=== PATIENT | female | born 1980 | race Caucasian/White ===

== ENCOUNTER 2016-12-26 07:38 | Emergency (ER) | payer BC, OTHER ==
[~2016-12-26] VITALS: Ht 160 cm; Wt 68.2 kg
[~2016-12-26 07:38] MED LIST: CALC500C3
[2016-12-26 07:44] VITALS: TEMP 36.4; Ht 160 cm; Wt 68.2 kg
[2016-12-26] MEDS ORDERED: SODIUM CHLORIDE 0.9% 1000ML 1,000 ML IV STA ×2 (08:03→10:18)
[2016-12-26] MEDS ORDERED: ONDANSETRON INJ 2 MG/ML 2 ML VIAL IV STA (08:03)
[2016-12-26] MEDS ORDERED: MoRPHine SULFATE 4 MG/ML 1 ML CARP\\VIAL IV STA (08:03)
--- NOTE | 2016-12-26 08:09 | EMERGENCY ROOM VISIT NOTE ---
History First contact with patient: 07:54 Chief Complaint: ABDOMINAL PAIN Stated Complaint: STOMACH PAIN Nursing Triage Summary: History of IBS with chronic constipation Reports symptoms began this morning at 0530 Sharp bilateral upper abdominal pain Nausea without vomiting Last bowel movement yesterday History of Present Illness The patient is a 36 year old female who presents to the Emergency Room with complaints of abdominal pain. The patient states that this morning she developed abdominal pain and cramping around 5:30 AM. She became nauseated but did not vomit. She states the pain progressively worsened and describes the pain as sharp, cramping and in the upper abdomen, particularly on the right. She rates her discomfort a 4/10. She denies any fevers. She denies any vomiting or diarrhea. She denies any pain in her chest, trouble breathing or pleuritic pain. She denies any urinary symptoms. She does have a history of breast cancer treated with mastectomy. She has a history of irritable bowel syndrome with constipation. Review of Systems A 10 system review of systems was completed with positives and pertinent negatives listed in the HPI. Past Medical/Surgical History Medical Problems: (1) Breast cancer (2) No Known Active Medical Problems Surgical Problems: (1) H/O section Social History Smoking Status: Never Smoker Housing Status: lives with family Current/Historical Medications Scheduled Control Pills ( Control Pills), 1 TAB PO HS Scheduled PRN Calcium Carbonate (Tums), for Acid Relux Allergies Coded Allergies: No Known Allergies (Verified , 12/26/16) Physical Exam Vital Signs Date Time Temp Pulse Resp B/P Pulse Ox O2 Delivery O2 Flow Rate FiO2 12/26/16 11:53 71 16 94/59 97 12/26/16 10:05 74 16 110/63 96 Room Air 12/26/16 07:44 36.4 89 20 112/73 100 Room Air Physical Exam VITALS: Vitals are noted on the nurse's note and reviewed by myself. Vital signs stable. The patient is afebrile. GENERAL: This is a 36-year-old female, in no acute distress, nondiaphoretic, well-developed well-nourished. SKIN: The skin was without rashes, erythema, edema, or bruising. There is no tenting of the skin. Capillary reflex less than 2 seconds. HEAD: Normocephalic atraumatic. EARS: The external ears are normal in appearance. EYES: Pupils equal round and reactive to light and accommodation. Conjunctivae without injection, sclerae without icterus. Extraocular movements intact. NOSE: Patent, turbinates without inflammation or discharge. MOUTH: Mucous membranes moist. Tonsils are not enlarged. Pharynx without erythema or exudate. Uvula midline. Airway patent. Tongue does not deviate. NECK: Supple without nuchal rigidity. No JVD. HEART: Regular rate and rhythm without murmurs gallops or rubs. LUNGS: Clear to auscultation bilaterally without wheezes, rales or rhonchi. No retractions or accessory muscle use. ABDOMEN: Positive bowel sounds x 4. Soft, marked upper abdominal tenderness, without masses or organomegaly. Velasco sign positive. There is no CVA tenderness. MUSCULOSKELETAL: No muscle atrophy, erythema, or edema noted. Full range of motion in all extremities. Normal gait. Strength 5/5 throughout. NEURO: Patient was alert and oriented to person place and time. No focal neurological deficits. Medical Decision & Procedures ER Provider Diagnostic Interpretation: BILIARY ULTRASOUND CLINICAL HISTORY: Right upper quadrant abdominal pain COMPARISON STUDY: No previous studies for comparison. FINDINGS: The pancreas was nonvisualized. The gallbladder. Sonographically normal. There is no ductal dilatation. The common buttock measures 3 mm. No focal hepatic masses are visualized. There is no right-sided hydronephrosis. IMPRESSION: Nondiagnostic evaluation the pancreas. Otherwise normal biliary ultrasound. ABDOMEN 2VIEW W/PA CHEST RTN CLINICAL HISTORY: abdominal pain COMPARISON STUDY: No previous studies for comparison. FINDINGS: The soft tissues, psoas shadows, renal outlines and intestinal gas pattern appear normal. There is no evidence for bowel obstruction. There is no evidence for free intraperitoneal air. No abnormal abdominal calcifications are seen. A frontal view of the chest was performed and is unremarkable. IMPRESSION: Normal study. [~ rep ct add3]] CT ABD/PELVIS IV CONTRAST ONLY CLINICAL HISTORY: Right lower quadrant abdominal pain COMPARISON STUDY: None. TECHNIQUE: Following the IV administration of 119 mL of Optiray-320, CT scan of the abdomen and pelvis was performed from the lung bases to the proximal femurs. Images are reviewed in the axial, sagittal, and coronal planes. IV contrast was administered without complication. CT DOSE: 501.21 mGycm FINDINGS: Lower chest: There are bilateral breast implants. There are minimal dependent atelectatic changes. Liver: There is borderline hepatic steatosis. No focal masses are visualized. Gallbladder: Unremarkable. Spleen: Normal in size and attenuation. Pancreas: Unremarkable. Adrenal glands: Unremarkable. Kidneys: There is symmetric renal cortical enhancement. The kidneys are normal in size without hydronephrosis. Bowel: The appendix appears normal as visualized. There is no evidence of acute diverticulitis. There are multiple fluid-filled small bowel and colonic loops. There are no transition zones indicate bowel obstruction. There is borderline small bowel wall thickening. Clinical correlation regards to an enteritis is recommended. Peritoneum: There is no intraperitoneal free air or abdominal ascites. Vasculature: The abdominal aorta is normal in course and caliber. Adenopathy: None. Pelvic viscera: The bladder, and pelvic viscera are unremarkable. Skeletal structures: No destructive osseous lesions are seen. IMPRESSION: 1. No evidence of bowel obstruction. No evidence of free air 2. No evidence of acute appendicitis 3. Multiple fluid-filled bowel loops with borderline small bowel wall thickening. Clinical correlation in regards to an enteritis is recommended Laboratory Results 12/26/16 08:00 Red Blood Count 5.05, Mean Corpuscular Volume 88.3, Mean Corpuscular Hemoglobin 30.7, Mean Corpuscular Hemoglobin Concent 34.8, Mean Platelet Volume 10.5, Neutrophils (%) (Auto) 82.7, Lymphocytes (%) (Auto) 7.2, Monocytes (%) (Auto) 8.8, Eosinophils (%) (Auto) 0.9, Basophils (%) (Auto) 0.1, Neutrophils # (Auto) 13.87, Lymphocytes # (Auto) 1.21, Monocytes # (Auto) 1.48, Eosinophils # (Auto) 0.15, Basophils # (Auto) 0.02 12/26/16 08:00 Test 12/26/16 08:00 12/26/16 08:24 12/26/16 08:55 White Blood Count 16.78 K/uL (4.8-10.8) Red Blood Count 5.05 M/uL (4.2-5.4) Hemoglobin 15.5 g/dL (12.0-16.0) Hematocrit 44.6 % (37-47) Mean Corpuscular Volume 88.3 fL (80-100) Mean Corpuscular Hemoglobin 30.7 pg (25-34) Mean Corpuscular Hemoglobin Concent 34.8 g/dl (32-36) Platelet Count 321 K/uL (130-400) Mean Platelet Volume 10.5 fL (7.4-10.4) Neutrophils (%) (Auto) 82.7 % Lymphocytes (%) (Auto) 7.2 % Monocytes (%) (Auto) 8.8 % Eosinophils (%) (Auto) 0.9 % Basophils (%) (Auto) 0.1 % Neutrophils # (Auto) 13.87 K/uL (1.4-6.5) Lymphocytes # (Auto) 1.21 K/uL (1.2-3.4) Monocytes # (Auto) 1.48 K/uL (0.11-0.59) Eosinophils # (Auto) 0.15 K/uL (0-0.5) Basophils # (Auto) 0.02 K/uL (0-0.2) RDW Standard Deviation 40.4 fL (36.4-46.3) RDW Coefficient of Variation 12.6 % (11.5-14.5) Immature Granulocyte % (Auto) 0.3 % Immature Granulocyte # (Auto) 0.05 K/uL (0.00-0.02) Prothrombin Time 11.1 SECONDS (9.0-12.0) Prothromb Time International Ratio 1.0 (0.9-1.1) Activated Partial Thromboplast Time 27.9 SECONDS (21.0-31.0) Partial Thromboplastin Ratio 1.1 Anion Gap 12.0 mmol/L (3-11) Est Creatinine Clear Calc Drug Dose 79.4 ml/min Estimated GFR () 95.3 Estimated GFR (Non- 82.2 BUN/Creatinine Ratio 16.3 (10-20) Calcium Level 8.8 mg/dl (8.5-10.1) Magnesium Level 2.0 mg/dl (1.8-2.4) Total Bilirubin 0.3 mg/dl (0.2-1) Aspartate Amino Transf (AST/SGOT) 11 U/L (15-37) Alanine Aminotransferase (ALT/SGPT) 18 U/L (12-78) Alkaline Phosphatase 64 U/L (45-117) Total Protein 8.3 gm/dl (6.4-8.2) Albumin 3.9 gm/dl (3.4-5.0) Globulin 4.4 gm/dl (2.5-4.0) Albumin/Globulin Ratio 0.9 (0.9-2) Amylase Level 95 U/L (25-115) Lipase 179 U/L (73-393) Lactic Acid Level 2.3 mmol/L (0.4-2.0) Urine Color YELLOW Urine Appearance CLEAR (CLEAR) Urine pH 5.5 (4.5-7.5) Urine Specific [place] 1.006 (1.000-1.030) Urine Protein NEG (NEG) Urine Glucose (UA) NEG (NEG) Urine Ketones NEG (NEG) Urine Occult Blood TRACE (NEG) Urine Nitrite NEG (NEG) Urine Bilirubin NEG (NEG) Urine Urobilinogen NEG (NEG) Urine Leukocyte Esterase NEG (NEG) Urine WBC (Auto) 0 /hpf (0-5) Urine RBC (Auto) 0-4 /hpf (0-4) Urine Hyaline Casts (Auto) 0 /lpf (0-5) Urine Epithelial Cells (Auto) 20-30 /lpf (0-5) Urine Bacteria (Auto) NEG (NEG) Urine Test NEG (NEG) Medications Administered Medications (Trade) Dose Ordered Sig/Babatunde Route Start Time Stop Time Status Last Admin Dose Admin Sodium Chloride (Nss 1000ml) 1,000 ml @ 999 mls/hr Q1H1M STAT IV 12/26/16 08:03 12/26/16 09:03 DC 12/26/16 08:16 999 MLS/HR Morphine Sulfate (MoRPHine SULFATE INJ) 4 mg NOW STAT IV 12/26/16 08:03 12/26/16 08:08 DC 12/26/16 08:16 4 MG Ondansetron HCl 4 mg 4 mg NOW STAT IV 12/26/16 08:03 12/26/16 08:08 DC 12/26/16 08:17 4 MG Sodium Chloride (Nss 1000ml) 1,000 ml @ 999 mls/hr Q1H1M STAT IV 12/26/16 10:18 12/26/16 11:18 DC 12/26/16 10:18 999 MLS/HR ED Course The patient was seen and examined. Previous visits were reviewed. The patient does not have a fever. She does have a leukocytosis of 16.78. She does not have any significant electrolyte abnormality. Lactic acid shows a very minimal elevation at 2.3. Amylase and lipase were not elevated. INR was 1.0. Urinalysis suggests contamination. The patient was hydrated with normal saline 2 L She was given 4 mg IV morphine and 4 mg IV Zofran with improvement in her symptoms The patient presents to the emergency department with nausea and diffuse abdominal cramping. Initially, the pain was in the upper abdomen and particularly the right upper quadrant. Gallbladder ultrasound was negative. Plain films of the abdomen did not reveal any acute obstruction. At this time, I reevaluated the patient. She did have tenderness to palpation in the right lower quadrant that was not present on initial examination. Therefore, I did order a CT scan of the abdomen and pelvis with IV and oral contrast. The patient was not able to tolerate oral contrast and instead a contrast only CT was ordered. This reveals enteritis. The patient has had nausea and diffuse crampy abdominal pain. The patient states that she has gone to the bathroom more than usual but denies any true diarrhea. She does report a history of constipation. The patient states that she was around friends of hers a few days ago that has nausea, vomiting and diarrhea. This likely represents an enteritis, likely viral in etiology. I do not suspect an acute abdomen. The patient will be given a prescription for Zofran. She was advised to return to the emergency Department with any worsening symptoms. Otherwise, she should follow-up with her family doctor next week. The case was discussed with Dr. Hughes who agrees with the assessment and treatment plan. Medical Decision DIFFERENTIAL DIAGNOSIS: Hepatitis, cholecystitis, cholangitis, biliary colic, pancreatitis, pneumonia, subdiaphragmatic abscess, appendicitis, inguinal hernia , nephrolithiasis, inflammatory bowel disease, mesenteric adenitis, peptic ulcer disease, GERD, gastritis, pancreatitis, myocardial infarction, pericarditis, ruptured aortic aneurysm, appendicitis, gastroenteritis, bowel obstruction, splenic infarct, diverticulitis, mesenteric ischemia, metabolic, peritonitis, among others. Impression Primary Impression: Enteritis Additional Impression: Nausea Departure Information Dispostion Home / Self-Care Condition GOOD Referrals Waqas Ramirez M.D. (PCP) Patient Instructions ED Food Poison Or Gastroenteritis, My [facility] Additional Instructions Zofran as prescribed, as needed for nausea and vomiting [place] diet and increase the diet as tolerated Return to the ER with any worsening pain or fevers Otherwise, recheck with your family doctor next week Problem Qualifiers
[2016-12-26 08:23] LABS: BASO % 0.1 %; BASO ABS # 0.02 K/uL (0-0.2); COMPLETE YES; EOS % 0.9 %; HEMATOCRIT 44.6 % (37-47); IG% 0.3 %; LYMPH % 7.2 %; LYMPH ABS # 1.21 K/uL (1.2-3.4); MEAN CELL VOLUME 88.3 fL (80-100); MEAN CORPUSCULAR HEMOGLOBIN 30.7 pg (25-34); MEAN CORPUSCULAR HGB CONC 34.8 g/dl (32-36); MEAN PLATELET VOLUME 10.5 fL (7.4-10.4); MONO % 8.8 %; NEUT % 82.7 %; PLATELET COUNT 321 K/uL (130-400); RED BLOOD COUNT 5.05 M/uL (4.2-5.4); WHITE BLOOD COUNT 16.78 K/uL (4.8-10.8)
[2016-12-26 08:32] LABS: PARTIAL THROMBOPLASTIN RATIO 1.1; PROTHROMBIN TIME (PATIENT) 11.1 SECONDS (9.0-12.0)
[2016-12-26 08:43] LABS: BUN/CREATININE RATIO 16.3 (10-20); CALCIUM 8.8 mg/dl (8.5-10.1); CREATININE 0.89 mg/dl (0.60-1.20); POTASSIUM 4.1 mmol/L (3.5-5.1)
[2016-12-26 08:45] LABS: ALB/GLOB RATIO 0.9 (0.9-2)
[2016-12-26 09:13] LABS: URINE APPEARANCE CLEAR (CLEAR); URINE BILIRUBIN NEG (NEG); URINE COLOR YELLOW; URINE EPITHELIAL CELL AUTO 20-30 /lpf (0-5); URINE NITRITE NEG (NEG); URINE PH 5.5 (4.5-7.5); URINE SPECIFIC GRAVITY 1.006 (1.000-1.030); UROBILINOGEN NEG (NEG); ZZURINE CULT IF INDIC CATH NO
[2016-12-26 09:16] LABS: MANUAL MICROSCOPIC REQUIRED? NO; PREG INTERNAL NEGATIVE QC NEG CLEAR BACKGROUND; PREG INTERNAL POSITIVE QC POS CONTROL LINE; REVIEW REQ? NO
--- NOTE | 2016-12-26 09:35 | DIAGNOSTIC IMAGING REPORT ---
ABDOMEN 2VIEW W/PA CHEST RTN CLINICAL HISTORY: abdominal pain COMPARISON STUDY: No previous studies for comparison. FINDINGS: The soft tissues, psoas shadows, renal outlines and intestinal gas pattern appear normal. There is no evidence for bowel obstruction. There is no evidence for free intraperitoneal air. No abnormal abdominal calcifications are seen. A frontal view of the chest was performed and is unremarkable. IMPRESSION: Normal study. Electronically signed by: Anthony Patrick M.D. 12/26/2016 9:34 AM Dictated Date/Time: 12/26/2016 9:33 AM
--- NOTE | 2016-12-26 10:05 | DIAGNOSTIC IMAGING REPORT ---
BILIARY ULTRASOUND CLINICAL HISTORY: Right upper quadrant abdominal pain COMPARISON STUDY: No previous studies for comparison. FINDINGS: The pancreas was nonvisualized. The gallbladder. Sonographically normal. There is no ductal dilatation. The common buttock measures 3 mm. No focal hepatic masses are visualized. There is no right-sided hydronephrosis. IMPRESSION: Nondiagnostic evaluation the pancreas. Otherwise normal biliary ultrasound. Electronically signed by: Clarence Conley M.D. 12/26/2016 10:04 AM Dictated Date/Time: 12/26/2016 10:03 AM
[2016-12-26] MEDS ORDERED: OPTIRAY 320 IV PRN (10:30)
--- NOTE | 2016-12-26 11:19 | DIAGNOSTIC IMAGING REPORT ---
CT ABD/PELVIS IV CONTRAST ONLY CLINICAL HISTORY: Right lower quadrant abdominal pain COMPARISON STUDY: None. TECHNIQUE: Following the IV administration of 119 mL of Optiray-320, CT scan of the abdomen and pelvis was performed from the lung bases to the proximal femurs. Images are reviewed in the axial, sagittal, and coronal planes. IV contrast was administered without complication. CT DOSE: 501.21 mGycm FINDINGS: Lower chest: There are bilateral breast implants. There are minimal dependent atelectatic changes. Liver: There is borderline hepatic steatosis. No focal masses are visualized. Gallbladder: Unremarkable. Spleen: Normal in size and attenuation. Pancreas: Unremarkable. Adrenal glands: Unremarkable. Kidneys: There is symmetric renal cortical enhancement. The kidneys are normal in size without hydronephrosis. Bowel: The appendix appears normal as visualized. There is no evidence of acute diverticulitis. There are multiple fluid-filled small bowel and colonic loops. There are no transition zones indicate bowel obstruction. There is borderline small bowel wall thickening. Clinical correlation regards to an enteritis is recommended. Peritoneum: There is no intraperitoneal free air or abdominal ascites. Vasculature: The abdominal aorta is normal in course and caliber. Adenopathy: None. Pelvic viscera: The bladder, and pelvic viscera are unremarkable. Skeletal structures: No destructive osseous lesions are seen. IMPRESSION: 1. No evidence of bowel obstruction. No evidence of free air 2. No evidence of acute appendicitis 3. Multiple fluid-filled bowel loops with borderline small bowel wall thickening. Clinical correlation in regards to an enteritis is recommended Electronically signed by: Clarence Conley M.D. 12/26/2016 11:18 AM Dictated Date/Time: 12/26/2016 11:14 AM
[2016-12-26] MEDS ORDERED: ONDA4TAB10 SL (11:34)
[2016-12-26 11:53] VITALS: BP 94/59; PULSE 71; O2SAT 97
[2017-01-20] MEDS ORDERED: BCPILLS PO (11:41)
[2017-01-23] MEDS ORDERED: RANI150T3 PO (11:36)
[2017-01-23] MEDS ORDERED: ALUMSUS2 PO (11:36)
[2017-01-23] MEDS ORDERED: ONDA4TAB46 PO (11:36)
== END 2016-12-26 11:55 | disposition home or self-care (01) ==
LOC: C.EDB 07:43
DX: K52.9 Noninfective gastroenteritis and colitis, unspecified (principal); R11.0 Nausea; Z85.3 Personal history of malignant neoplasm of breast; Z90.10 Acquired absence of unspecified breast and nipple

== ENCOUNTER 2017-01-05 09:27 | Observation (INO) | payer BC ==
[~2017-01-05] VITALS: Ht 160 cm; Wt 68.7 kg
[2017-01-05] MEDS ORDERED: SODIUM CHLORIDE 0.9% 1000ML 1,000 ML IV STA (10:31)
[2017-01-05] MEDS ORDERED: KETOROLAC TROMETHAMINE 30 MG/ML VIAL IV STA (10:31)
[2017-01-05] MEDS ORDERED: ONDANSETRON 8 MG/54 ML D5W IV STA (10:31)
[2017-01-05 10:36] LABS: BASO % 0.2 %; BASO ABS # 0.02 K/uL (0-0.2); COMPLETE YES; EOS % 0.6 %; HEMATOCRIT 44.1 % (37-47); IG% 0.1 %; LYMPH % 25.6 %; LYMPH ABS # 2.17 K/uL (1.2-3.4); MEAN CELL VOLUME 88.4 fL (80-100); MEAN CORPUSCULAR HEMOGLOBIN 31.1 pg (25-34); MEAN CORPUSCULAR HGB CONC 35.1 g/dl (32-36); MEAN PLATELET VOLUME 10.8 fL (7.4-10.4); MONO % 6.5 %; PLATELET COUNT 346 K/uL (130-400); RED BLOOD COUNT 4.99 M/uL (4.2-5.4); WHITE BLOOD COUNT 8.48 K/uL (4.8-10.8)
[2017-01-05 10:45] LABS: ALT/SGPT 37 U/L (12-78); AST/SGOT 13 U/L (15-37); BLOOD UREA NITROGEN 15 mg/dl (7-18); CALCIUM 9.3 mg/dl (8.5-10.1); CARBON DIOXIDE 23 mmol/L (21-32); CHLORIDE 104 mmol/L (98-107); CREATININE 0.85 mg/dl (0.60-1.20); GLUCOSE 74 mg/dl (70-99); POTASSIUM 3.8 mmol/L (3.5-5.1); SODIUM 139 mmol/L (136-145)
[2017-01-05 10:48] LABS: ALKALINE PHOSPHATASE 55 U/L (45-117)
[2017-01-05] MEDS: HYDROmorphone INJ 1 MG/ML SYR IV PRN ×4 (11:06→17:56)
[2017-01-05 11:14] LABS: MANUAL MICROSCOPIC REQUIRED? YES; URINE APPEARANCE SL CLOUDY (CLEAR); URINE BILIRUBIN NEG (NEG); URINE COLOR YELLOW; URINE NITRITE NEG (NEG); URINE SPECIFIC GRAVITY 1.015 (1.000-1.030); UROBILINOGEN NEG (NEG)
[2017-01-05] MEDS ORDERED: BENZ100C84 PO (11:19)
[2017-01-05 11:32] LABS: REVIEW REQ? NO
[2017-01-05 12:00] LABS: URINE BACTERIA 2+ (NEG); URINE RBC 0-4 /hpf (0-4)
[2017-01-05 12:02] LABS: ZZUR CULT IF INDIC CLEAN CATCH YES
--- NOTE | 2017-01-05 12:10 | DIAGNOSTIC IMAGING REPORT ---
Biliary ultrasound CLINICAL HISTORY: recurrent severe, epigastric abd pain COMPARISON STUDY: 12/26/2016 FINDINGS: The gallbladder appears sonographically normal. There is no ductal dilatation. The common bile duct measured 4 mm. There is no right-sided hydronephrosis. No hepatic masses are visualized. The pancreas was not visualized. IMPRESSION: Nonvisualization of the pancreas. Otherwise normal biliary ultrasound. Electronically signed by: Clarence Conley M.D. 01/05/2017 12:09 PM Dictated Date/Time: 01/05/2017 12:08 PM
[2017-01-05] MEDS ORDERED: PROMETHAZINE HCL INJ 25 MG in SODIUM CHLORIDE 0.9% 50ML 50 ML IV STA (14:29)
[2017-01-05] MEDS ORDERED: IV FLUIDS COMPLETED PRN (16:00)
--- NOTE | 2017-01-05 16:15 | Medical Student: [facility] ---
Med Student History & Physical Date & Time of Service: Jan 05, 2017 at 16:09 Chief Complaint: Upper Abdominal Pain Primary Care Physician: Waqas Ramirez M.D. History of Present Illness Source: patient 36y/o female with a history of IBS with chronic constipation presents with a 10 day history of upper abdominal pain that became worse this morning. The patient was seen in the ED ten days ago for this dull, achy upper abdominal pain that comes and goes. During that visit, an ultrasound was done and came back showing a normal gallbladder. A CT of the abdomen and pelvis showed signs of enteritis. The patient was also seen at a [facility] clinic 10 days ago for cough, congestion, and fever. The patient was given tessalon pearls at that time and was sent home. She continued to have fevers, cough, congestion, and abdominal pain over the next few days and returned to the clinic about five days ago. At that time, the provider seeing the patient noticed significant tenderness on the abdominal exam and ordered a HIDA scan, which is set to be performed tomorrow 01/06/17. The patient was at work this morning, talking to a coworker, when her upper abdominal pain became much worse. She states that the pain became more sharp and was rated a 10 out of 10. Additionally, she felt very nauseous, hot, and sweaty and felt like she was going to pass out. She did not have an episode of syncope and she did not vomit. The pain continued until she received pain medication in the emergency department. Currently, she states that her abdominal pain has improved, rated a 2 out of 10. She denies chest pain , shortness of breath, diarrhea, palpitations, and lower extremity swelling. Her cough and congestion have improved. The patient denies urinary symptoms, including pain with urination and going more often. In regards to her history of IBS, she states that her current episodes of pain feel different than the usual symptoms she gets with her IBS. The patient states she chronically has constipation from her IBS. Past Medical/Surgical History Medical Problems: (1) Enteritis 2. Breast Cancer 3. IBS with chronic constipation Surgical Problems: (1) H/O section 2. double mastectomy 3. port removal and replacement 4. breast reconstruction Family History CA, DM, HTN, kidney stones, seizures Mother: pertinent history of (gallbladder removal) Social History Smoking Status: Never Smoker Alcohol Use: none Drug Use: none Marital Status: Immunizations History of Influenza Vaccine: No History of Tetanus Vaccine?: Unknown History of Pneumococcal: No History of Hepatitis B Vaccine: No Allergies Coded Allergies: No Known Allergies (Verified , 01/05/17) Medications Control Pills ( Control Pills), 1 TAB PO HS Calcium Carbonate (Tums), for Acid Relux Review of Systems Constitutional: + sweats, No chills, No weakness Eyes: No discharge, No redness, No worsening of vision ENT: No hearing loss, No sore throat, No trouble swallowing Respiratory: No cough, No dyspnea at rest, No dyspnea on exertion, No shortness of breath, No sputum, No wheezing Cardiovascular: No chest pain, No edema, No orthopnea, No palpitations Abdomen: + constipation, + nausea, + pain, No GI bleeding, No diarrhea, No vomiting Musculoskeletal: No calf pain, No joint pain, No muscle pain, No swelling Genitourinary - Female: No dysuria, No urinary frequency, No urinary incontinence, No urinary urgency Neurologic: No memory loss, No paralysis, No weakness Integumentary: No itch, No new/changing skin lesions, No rash Physical Exam Vital Signs (24 Hours) Date Time Temp Pulse Resp B/P Pulse Ox O2 Delivery O2 Flow Rate FiO2 01/05/17 14:03 80 18 93/60 98 Room Air 01/05/17 12:33 74 18 113/70 100 Room Air 01/05/17 11:07 83 18 111/69 97 Room Air 01/05/17 09:29 87 20 118/74 100 Room Air General Appearance: WD/WN, no apparent distress Head: normocephalic, atraumatic Eyes: normal inspection, EOMI Respiratory/Chest: lungs clear, normal breath sounds, no respiratory distress, no accessory muscle use Cardiovascular: regular rate, rhythm, no edema, no gallop, no murmur Abdomen/GI: normal bowel sounds, soft, no organomegaly, + tenderness (RUQ and LUQ) Back: normal inspection, + right CVA tenderness Extremities/Musculoskelatal: normal inspection, no calf tenderness, no pedal edema Neurologic/Psych: alert, normal mood/affect, oriented x 3 Skin: normal color, warm/dry, no rash Diagnostics Laboratory Results Results Past 24 Hours Test 01/05/17 09:40 01/05/17 10:51 Range/Units White Blood Count 8.48 4.8-10.8 K/uL Red Blood Count 4.99 4.2-5.4 M/uL Hemoglobin 15.5 12.0-16.0 g/dL Hematocrit 44.1 37-47 % Mean Corpuscular Volume 88.4 80-100 fL Mean Corpuscular Hemoglobin 31.1 25-34 pg Mean Corpuscular Hemoglobin Concent 35.1 32-36 g/dl Platelet Count 346 130-400 K/uL Mean Platelet Volume 10.8 7.4-10.4 fL Neutrophils (%) (Auto) 67.0 % Lymphocytes (%) (Auto) 25.6 % Monocytes (%) (Auto) 6.5 % Eosinophils (%) (Auto) 0.6 % Basophils (%) (Auto) 0.2 % Neutrophils # (Auto) 5.68 1.4-6.5 K/uL Lymphocytes # (Auto) 2.17 1.2-3.4 K/uL Monocytes # (Auto) 0.55 0.11-0.59 K/uL Eosinophils # (Auto) 0.05 0-0.5 K/uL Basophils # (Auto) 0.02 0-0.2 K/uL RDW Standard Deviation 40.1 36.4-46.3 fL RDW Coefficient of Variation 12.6 11.5-14.5 % Immature Granulocyte % (Auto) 0.1 % Immature Granulocyte # (Auto) 0.01 0.00-0.02 K/uL Sodium Level 139 136-145 mmol/L Potassium Level 3.8 3.5-5.1 mmol/L Chloride Level 104 98-107 mmol/L Carbon Dioxide Level 23 21-32 mmol/L Anion Gap 12.0 3-11 mmol/L Blood Urea Nitrogen 15 7-18 mg/dl Creatinine 0.85 0.60-1.20 mg/dl Est Creatinine Clear Calc Drug Dose 83.5 ml/min Estimated GFR () 100.7 Estimated GFR (Non- 86.9 BUN/Creatinine Ratio 18.0 10-20 Random Glucose 74 70-99 mg/dl Calcium Level 9.3 8.5-10.1 mg/dl Total Bilirubin 0.3 0.2-1 mg/dl Direct Bilirubin < 0.1 0-0.2 mg/dl Aspartate Amino Transf (AST/SGOT) 13 15-37 U/L Alanine Aminotransferase (ALT/SGPT) 37 12-78 U/L Alkaline Phosphatase 55 45-117 U/L Total Protein 8.7 6.4-8.2 gm/dl Albumin 4.2 3.4-5.0 gm/dl Lipase 199 73-393 U/L Urine Color YELLOW Urine Appearance SL CLOUDY CLEAR Urine pH 6.0 4.5-7.5 Urine Specific [place] 1.015 1.000-1.030 Urine Protein NEG NEG Urine Glucose (UA) NEG NEG Urine Ketones NEG NEG Urine Occult Blood TRACE NEG Urine Nitrite NEG NEG Urine Bilirubin NEG NEG Urine Urobilinogen NEG NEG Urine Leukocyte Esterase SMALL NEG Urine RBC 0-4 0-4 /hpf Urine WBC 5-10 0-5 /hpf Urine Epithelial Cells >30 0-5 /lpf Urine Renal Cells FEW /lpf Urine Bacteria 2+ NEG Urine Hyaline Casts 5-10 0-5 /lpf Urine Mucus NONE PRSENT Urine Test NEG NEG Microbiology Results 01/05/17 Urine Culture, Received Pending Diagnostic Radiology GALLBLADDER US IMPRESSION: Nonvisualization of the pancreas. Otherwise normal biliary ultrasound. Impression Assessment and Plan 36y/o female with a history of IBS with chronic constipation presenting with a 10 day history of upper abdominal pain, worsening today am. Gallbladder US performed today was negative and HIDA scan scheduled for tomorrow. UA shows trace blood, 2+ bacteria, 5-10 hyaline casts, and small leukocyte esterase. These findings, combined with right flank tenderness on exam raises suspicion for potential pyelonephritis/UTI. However, there were greater than 30 epithelial cells in the sample as well, suggesting that the sample may have been contaminated. Consider obtaining a second urine sample, as well as CRP and procalcitonin, to better determine the state of infection. Urine culture is pending. Will administer IV fluids for dehydration. Upper abdominal pain/gallbladder dysfunction- Administer Dilaudid 1mg IV [id number] as needed for pain and Ondansetron HCl 4mg PO [id number] as needed for nausea. Proceed with scheduled HIDA scan tomorrow. Pyelonephritis/UTI- Collect another urine and repeat urinalysis to better determine if the patient has an infection. CRP and procalcitonin have been ordered. Urine culture pending. Hold administering antibiotics at this point. Dehydration- Hyaline casts were found on urinalysis. Administer 1/2 NS and 20meq KCl 1000ml at 150mls/hour. Control- Continue with home dosage of OCPs. Level of Care Med/Surg Resuscitation Status FULL RESUSCITATION
--- NOTE | 2017-01-05 17:01 | EMERGENCY ROOM VISIT NOTE ---
History Report prepared by [place]bert: Angela Bentley Under the Supervision of: Dr. Naif Elias M.D. First contact with patient: 10:17 Chief Complaint: ABDOMINAL PAIN Stated Complaint: STOMACH PAIN Nursing Triage Summary: Mid upper abdominal pain that began last Thursday "but it just got intense again" . Scheduled for HIDA scan tomorrow. History of Present Illness The patient is a 36 year old female who presents to the Emergency Room with complaints of waxing and waning sore pain in the upper central stomach which started 10 days ago. The patient went to the [facility] walk-in clinic for a head cold, cough and congestion and they noticed that she was tender in her upper abdomen. They were concerned for a gallbladder problems, so she was scheduled for a HIDA scan tomorrow, but was prompted to visit the ED after her pain worsened earlier today. She reports that she has previously had an ultrasound of her gallbladder when she was in the ED with similar symptoms December 26 which was found to be normal. This morning when her pain worsened , she also experienced diaphoresis, and feeling flushed and hot as if she was going to pass out. She did not lose consciousness. Currently, she is nauseated. She reports that she had a bowl of fruit this morning and her "bowels don't work well" normally. She has a history of a . She mentions that her mother has had a cholecystectomy. Pt denies LOC, headache, chills, visual changes, neck pain, chest pain, breathing difficulties, vomiting, back pain, melena, hematochezia, urinary symptoms, numbness, weakness, lymphadenopathy, rash, or other complaints. Source of History: patient Onset: 10 days ago Position: abdomen (upper) Quality: other (sore) Timing: waxes/wanes Associated Symptoms: + diaphoresis, + nausea Note: Associated symptoms: felt flushed and hot Review of Systems See HPI for pertinent positives and negatives. A total of ten systems were reviewed and were otherwise negative. Past Medical & Surgical Medical Problems: (1) Abdominal pain (2) Breast cancer (3) No Known Active Medical Problems Surgical Problems: (1) H/O section Family History Cancer Diabetes mellitus Hypertension Kidney stones Lung disease Seizures Social History Smoking Status: Never Smoker Marital Status: Housing Status: lives with family Occupation Status: employed Current/Historical Medications Scheduled Benzonatate (Tessalon Perles), 100 MG PO Q8 Control Pills ( Control Pills), 1 TAB PO HS Scheduled PRN Calcium Carbonate (Tums), for Acid Relux Allergies Coded Allergies: No Known Allergies (Verified , 01/05/17) Physical Exam Vital Signs Date Time Temp Pulse Resp B/P Pulse Ox O2 Delivery O2 Flow Rate FiO2 01/05/17 16:01 76 20 132/80 96 Room Air 01/05/17 14:03 80 18 93/60 98 Room Air 01/05/17 12:33 74 18 113/70 100 Room Air 01/05/17 11:07 83 18 111/69 97 Room Air 01/05/17 09:29 87 20 118/74 100 Room Air Physical Exam GENERAL: Awake, alert, uncomfortable appearing, in no distress HENT: Normocephalic, atraumatic. Oropharynx unremarkable. EYES: Normal conjunctiva. Sclera non-icteric. NECK: Supple. No nuchal rigidity. FROM. No JVD. RESPIRATORY: Clear to auscultation. CARDIAC: Regular rate, normal rhythm. Extremities warm and well perfused. Pulses equal. ABDOMEN: Soft, non-distended. Epigastric tenderness to palpation. No rebound. Mild guarding. No masses. RECTAL: Deferred. MUSCULOSKELETAL: Chest examination reveals no tenderness. The back is symmetrical on inspection without obvious abnormality. Right CVA tenderness to palpation. No joint edema. LOWER EXTREMITIES: Calves are equal size bilaterally and non-tender. No edema. No discoloration. NEURO: Normal sensorium. No sensory or motor deficits noted. SKIN: No rash or jaundice noted. Medical Decision & Procedures ER Provider Diagnostic Interpretation: Radiology results as stated below per my review and radiologist interpretation. Biliary ultrasound CLINICAL HISTORY: recurrent severe, epigastric abd pain COMPARISON STUDY: 12/26/2016 FINDINGS: The gallbladder appears sonographically normal. There is no ductal dilatation. The common bile duct measured 4 mm. There is no right-sided hydronephrosis. No hepatic masses are visualized. The pancreas was not visualized. IMPRESSION: Nonvisualization of the pancreas. Otherwise normal biliary ultrasound. Electronically signed by: Clarence Conley M.D. 01/05/2017 12:09 PM Laboratory Results 01/05/17 09:40 Red Blood Count 4.99, Mean Corpuscular Volume 88.4, Mean Corpuscular Hemoglobin 31.1, Mean Corpuscular Hemoglobin Concent 35.1, Mean Platelet Volume 10.8, Neutrophils (%) (Auto) 67.0, Lymphocytes (%) (Auto) 25.6, Monocytes (%) (Auto) 6.5, Eosinophils (%) (Auto) 0.6, Basophils (%) (Auto) 0.2, Neutrophils # (Auto) 5.68, Lymphocytes # (Auto) 2.17, Monocytes # (Auto) 0.55, Eosinophils # (Auto) 0.05, Basophils # (Auto) 0.02 01/05/17 09:40 Test 01/05/17 09:40 01/05/17 10:51 White Blood Count 8.48 K/uL (4.8-10.8) Red Blood Count 4.99 M/uL (4.2-5.4) Hemoglobin 15.5 g/dL (12.0-16.0) Hematocrit 44.1 % (37-47) Mean Corpuscular Volume 88.4 fL (80-100) Mean Corpuscular Hemoglobin 31.1 pg (25-34) Mean Corpuscular Hemoglobin Concent 35.1 g/dl (32-36) Platelet Count 346 K/uL (130-400) Mean Platelet Volume 10.8 fL (7.4-10.4) Neutrophils (%) (Auto) 67.0 % Lymphocytes (%) (Auto) 25.6 % Monocytes (%) (Auto) 6.5 % Eosinophils (%) (Auto) 0.6 % Basophils (%) (Auto) 0.2 % Neutrophils # (Auto) 5.68 K/uL (1.4-6.5) Lymphocytes # (Auto) 2.17 K/uL (1.2-3.4) Monocytes # (Auto) 0.55 K/uL (0.11-0.59) Eosinophils # (Auto) 0.05 K/uL (0-0.5) Basophils # (Auto) 0.02 K/uL (0-0.2) RDW Standard Deviation 40.1 fL (36.4-46.3) RDW Coefficient of Variation 12.6 % (11.5-14.5) Immature Granulocyte % (Auto) 0.1 % Immature Granulocyte # (Auto) 0.01 K/uL (0.00-0.02) Anion Gap 12.0 mmol/L (3-11) Est Creatinine Clear Calc Drug Dose 83.5 ml/min Estimated GFR () 100.7 Estimated GFR (Non- 86.9 BUN/Creatinine Ratio 18.0 (10-20) Calcium Level 9.3 mg/dl (8.5-10.1) Total Bilirubin 0.3 mg/dl (0.2-1) Direct Bilirubin < 0.1 mg/dl (0-0.2) Aspartate Amino Transf (AST/SGOT) 13 U/L (15-37) Alanine Aminotransferase (ALT/SGPT) 37 U/L (12-78) Alkaline Phosphatase 55 U/L (45-117) Total Protein 8.7 gm/dl (6.4-8.2) Albumin 4.2 gm/dl (3.4-5.0) Lipase 199 U/L (73-393) Urine Color YELLOW Urine Appearance SL CLOUDY (CLEAR) Urine pH 6.0 (4.5-7.5) Urine Specific [place] 1.015 (1.000-1.030) Urine Protein NEG (NEG) Urine Glucose (UA) NEG (NEG) Urine Ketones NEG (NEG) Urine Occult Blood TRACE (NEG) Urine Nitrite NEG (NEG) Urine Bilirubin NEG (NEG) Urine Urobilinogen NEG (NEG) Urine Leukocyte Esterase SMALL (NEG) Urine RBC 0-4 /hpf (0-4) Urine WBC 5-10 /hpf (0-5) Urine Epithelial Cells >30 /lpf (0-5) Urine Renal Cells /lpf (FEW) Urine Bacteria 2+ (NEG) Urine Hyaline Casts 5-10 /lpf (0-5) Urine Mucus (NONE PRSENT) Urine Test NEG (NEG) Laboratory results reviewed by me Medications Administered Medications (Trade) Dose Ordered Sig/Babatunde Route Start Time Stop Time Status Last Admin Dose Admin Hydromorphone HCl 1 mg 1 mg Q15M PRN IV 01/05/17 10:45 01/19/17 10:44 01/05/17 16:09 1 MG Sodium Chloride (Nss 1000ml) 1,000 ml @ 999 mls/hr Q1H1M STAT IV 01/05/17 10:31 01/05/17 11:31 DC 01/05/17 11:07 999 MLS/HR Ketorolac Tromethamine (Toradol Inj) 10 mg NOW STAT IV 01/05/17 10:31 01/05/17 10:32 DC 01/05/17 11:06 10 MG Ondansetron HCl 8 mg 8 mg NOW STAT IV 01/05/17 10:31 01/05/17 10:32 DC 01/05/17 11:06 8 MG Promethazine HCl/ Sodium Chloride (Phenergan Inj/ Nss 50ml) 51 ml @ 204 mls/hr NOW STAT IV 01/05/17 14:29 01/05/17 14:43 DC 01/05/17 14:43 204 MLS/HR ED Course 1029: The patient was evaluated in room A9. A complete history and physical exam was performed.\\ 1031: Zofran 8 mg IV, Toradol Inj 10 mg IV, NSS 1000 ml @ 999 mls/hr IV. 1045: Dilaudid Inj 1 mg IV. 1429: Ordered Promethazine HCl 25 mg/NSS 51 ml @ 204 mls/hr IV. 1438: Upon reexamination, the patient still has some pain and nausea. I discussed the test results and treatment plan with her. The patient will be evaluated for further management. 1503: I discussed the case [facility] The patient will be evaluated for further management. Medical Decision Triage Nursing notes reviewed. The patient's presentation and history were concerning for abdominal pain. Etiologies such as PUD, biliary pathology, pancreatitis, appendicitis, diverticulitis, obstruction, inflammatory bowel disease, renal colic, mesenteric ischemia, aortic pathology, infections, genitourinary, UTI, perforated viscus, as well as others were entertained. Patient was evaluated. Comfortable. She was treated with Dilaudid and Zofran. She did feel somewhat better. She had recurrent pain and was given a second dose of Dilaudid and Phenergan. The patient had unremarkable CBC and chemistry panel. LFTs and lipase are negative. Urinalysis unremarkable test negative. Ultrasound imaging did not reveal any obvious abnormality. The patient had a recent CT scan which was unremarkable as well. She is pending HIDA CT scan tomorrow. Since patient was still symptomatic and discuss further evaluation and management in the hospital. The patient was in agreement. I did consult with the [facility]ist service. The patient was evaluated in the Emergency Room for further management. The chart was completed utilizing [employer] voice recognition software. Grammatical errors, random word insertions, pronoun errors, and incomplete sentences are an occasional consequence of this system due to software limitations, ambient noise, and hardware issues. Any formal questions or concerns about the content, text, or information contained within the body of this dictation should be directly addressed to the physician for clarification. Consults Time Called: [phone] Consulting Physician: Dr. Scott Armendariz [facility] Returned Call: [phone] I discussed the case with him. The patient will be evaluated for further management. Impression Primary Impression: Epigastric abdominal pain Additional Impression: Nausea Scribe Attestation The scribe's documentation has been prepared under my direction and personally reviewed by me in its entirety. I confirm that the note above accurately reflects all work, treatment, procedures, and medical decision making performed by me. Departure Information Dispostion Being Evaluated By Hospitalist Referrals Waqas Ramirez M.D. (PCP) Patient Instructions My [facility] Problem Qualifiers
[2017-01-05] MEDS ORDERED: CALCIUM CARBONATE 500 MG CHEWABLE PO PRN (17:15)
[2017-01-05] MEDS ORDERED: HYDROmorphone INJ 1 MG/ML SYR IV PRN (17:15)
[2017-01-05 19:50] VITALS: BP 122/78; PULSE 76; TEMP 36.8; O2SAT 97; Ht 160 cm; Wt 68.7 kg
[2017-01-05] MEDS: SODIUM CHLOR 0.45% + 20MEQ KCL 1,000 ML IV SCH (21:14)
[2017-01-05] MEDS: ONDANSETRON INJ 2 MG/ML 2 ML VIAL IV PRN (21:14)
--- NOTE | 2017-01-05 21:56 | History and Physical ---
History & Physical admit #[id number]
[2017-01-05] MEDS ORDERED: LORAZEPAM INJ 0.5 MG in SYRINGE 0.25 ML IV STA (22:42)
[2017-01-05] MEDS ORDERED: PROMETHAZINE HCL INJ 12.5 MG in SODIUM CHLORIDE 0.9% 50ML 50 ML IV STA (22:42)
--- NOTE | 2017-01-05 22:44 | HISTORY & PHYSICAL EXAMINATION ---
DATE OF ADMISSION: 01/05/2017 CHIEF COMPLAINT: Abdominal pain. HISTORY OF PRESENT ILLNESS: The patient is a very pleasant 36-year-old female who notes that she started about 10 days ago with abdominal pain but came to the hospital today because it got be to the point of almost unbearable. She notes about 10 days ago, she started with diffuse abdominal pain, maybe worst in the epigastric area but seemingly fairly diffuse all over. No nausea, vomiting, no change in her bowels at that point in time and then the next day she became ill with febrile, aching all over type of an illness that progressed to cough and congestion. She was diagnosed clinically with the flu and then throughout that time, her abdominal pain got worse. She then went to [facility] walk-in clinic, complaining mostly of cough and congestion but also because of the belly pain. She was evaluated for this and there was more concern about it possibly being biliary. She had a right upper quadrant ultrasound that was negative, followed up and then she was going to have a HIDA scan to be done tomorrow. Then this morning at work she started with abdominal pain, far worse again, sharp, intense, 10/10. She felt nauseated, hot and sweaty. She does not know if she had a true fever or not, but she definitely felt hot and then after IV pain and nausea medicines, her pain is improved to more like 2/10, although she notes once the pain meds start to wear off, she starts to feel worse again. She denies rigors, although she has had fevers and chills. She denies dysuria. She denies any real change in the pain with eating. She notes sometimes the pain comes on after eating, sometimes it does not but she feels like the eating is not really trigger that leads to the pain as much as just that the pain comes and goes and sometimes that coming and going randomly coincides with eating. She clearly does not relate anything worse after eating fatty foods. REVIEW OF SYSTEMS: Otherwise negative except for as above. PAST MEDICAL HISTORY: Includes irritable bowel with chronic constipation, breast cancer. PAST SURGICAL HISTORY: , bilateral mastectomy and breast reconstruction, port placement and then removal. FAMILY HISTORY: Includes cancer, diabetes, hypertension, kidney stones and seizures. Her mom did have biliary disease with cholecystectomy. SOCIAL HISTORY: She is not a smoker. She is . She is employed. ALLERGIES: No known drug allergies. MEDICATIONS: Include control pill daily and Tums p.r.n. GERD. PHYSICAL EXAMINATION: VITAL SIGNS: Temperature 36.8, pulse 76, respiratory rate 14, blood pressure 122/78, 97% on room air. GENERAL: She is lying in bed, appears fatigued but otherwise in no acute distress. HEENT: Normocephalic, atraumatic. Mucous membranes are moist. CARDIOVASCULAR: Regular without rubs, murmurs, or gallops. LUNGS: Clear to auscultation bilaterally. No rales, rhonchi, or wheezes with good effort. ABDOMEN: Soft, nondistended. She has diffuse tenderness epigastric, probably more than left upper quadrant, more than right upper quadrant, more than everywhere else with some voluntary guarding but only to moderate to deep palpation. No rebound, no rigidity, negative Velasco sign. No masses or organomegaly. EXTREMITIES: Without cyanosis, clubbing or edema. No calf tenderness. SKIN: Shows no rashes. No pallor or icterus. NEUROLOGIC: Shows cranial nerves II-XII to be grossly intact. Gross motor and sensory are intact. MENTAL STATE: Shows good recent and remote recall. Normal mood and affect. LABS AND DIAGNOSTICS: CBC shows a white count of 8.5 with 67% neutrophils, hemoglobin 15.5, platelets 346. Complete metabolic panel with sodium 139, potassium 3.8, chloride 104, CO2 23, BUN 15, creatinine 0.85, calcium 9.3, glucose 74, total bili 0.3 with a direct of less than 0.1, AST 13, ALT 37, alk phos 55. CRP of less than 0.29. Procalcitonin less than 0.05. Total protein 8.7, albumin 4.2, lipase 199. Urinalysis with a negative test. Slightly cloudy, specific gravity 1.015, trace blood with 0-4 red cells, 5-10 white cells, greater than 30 epithelial cells, 5-10 hyaline casts, 2+ bacteria. A right upper quadrant ultrasound appeared overall normal, common bile duct 4 mm, gallbladder appearing sonographically normal. ASSESSMENT AND PLAN: 1. Abdominal pain. The differential for this seems fairly broad. Given the prior workup geared towards biliary disease, it appears prudent to carry through with her HIDA scan, given that acalculous cholecystitis can sometimes manifest with atypical symptoms; however, given her lack of clear postprandial symptoms, I suspect this will be negative. Without any diarrhea, nausea or vomiting, it does not seem clearly any sort of infectious enteritis. Certainly with all of her coughing, abdominal wall strain is possible and with her history of irritable bowel, it is also very possible that she had a flu-like illness that has flared her IBS and made things worse in that respect. Her symptoms of abdominal pain however did precede her flu-like symptoms. We will follow serial exams, serial labs, get the HIDA scan but if things are appearing overall negative, I would suspect it to be more of a muscular or functional bowel type of problem and I discussed this with the patient that if her workup continues to be negative, it likely would be something along those lines. 2. Deep venous thrombosis prophylaxis. Ambulation.
[2017-01-05 22:55] VITALS: BP 133/71; PULSE 76; TEMP 36.4; O2SAT 98
[2017-01-06] MEDS: SODIUM CHLOR 0.45% + 20MEQ KCL 1,000 ML IV SCH ×4 (04:10→23:35)
[2017-01-06] MEDS ORDERED: INFLUENZA ADMINISTRATION CHARGE ONE (06:00)
[2017-01-06] MEDS ORDERED: INFLUENZA VIRUS QUAD VACCINE 0.5 ML SYR IM. ONE (06:00)
[2017-01-06 06:50] VITALS: BP 94/58; PULSE 75; TEMP 37; O2SAT 97
[2017-01-06 09:15] LABS: MANUAL MICROSCOPIC REQUIRED? NO; URINE APPEARANCE CLEAR (CLEAR); URINE BILIRUBIN NEG (NEG); URINE COLOR YELLOW; URINE NITRITE NEG (NEG); URINE PH 5.5 (4.5-7.5); UROBILINOGEN NEG (NEG)
[2017-01-06 09:16] LABS: REVIEW REQ? NO
[2017-01-06] MEDS ORDERED: SINCALIDE INJ 0 MCG in SODIUM CHLORIDE 0.9% 100ML IV SCH (11:15)
[2017-01-06] MEDS ORDERED: SINCALIDE IV SCH (11:15)
[2017-01-06] MEDS ORDERED: SODIUM CHLORIDE 0.9% IV SCH (11:15)
--- NOTE | 2017-01-06 12:28 | Hospitalist Progress Note ---
Hospitalist Progress Note Date of Service Jan 06, 2017. 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 Pt reports doing fairly well this morning, pain well controlled for the first in the past 10 days. She denies pain with rest, or with palpation during exam. She notes it always worsens with movement. She hasn't eaten since yesterday morning. Denies diarrhea or constipations. She had dry heaves last evening but denies vomiting. Pt had seen a GI doc in [place] about 10 years ago for a colonoscopy, but does not follow with that physician anymore. She has not see outpatient GI for these complaints now. She denies sob, cp, lightheadedness, dizziness. All Other Systems: Reviewed and Negative (other than listed in HPI) (Bita Doss PA-C) Objective Vital Signs Date Time Temp Pulse Resp B/P Pulse Ox O2 Delivery O2 Flow Rate FiO2 01/06/17 07:10 Room Air 01/06/17 06:50 37.0 75 19 94/58 97 Room Air 01/05/17 23:40 Room Air 01/05/17 22:55 36.4 76 18 133/71 98 Room Air 01/05/17 19:50 36.8 76 16 122/78 97 Room Air 01/05/17 19:50 36.8 76 14 122/78 97 Room Air 01/05/17 19:07 77 18 134/75 97 Room Air 01/05/17 17:08 76 20 100/61 98 Room Air 01/05/17 16:01 76 20 132/80 96 Room Air 01/05/17 14:03 80 18 93/60 98 Room Air 01/05/17 12:33 74 18 113/70 100 Room Air (Bita Doss PA-C) Physical Exam General Appearance: WD/WN, no apparent distress Eyes: PERRL, EOMI ENT: hearing grossly normal, pharynx normal Neck: supple, no JVD Respiratory/Chest: chest non-tender, lungs clear, no respiratory distress, no accessory muscle use Cardiovascular: regular rate, rhythm, no murmur Abdomen: non tender, soft, no organomegaly, + pertinent finding (hypoactive bowel sounds, no guarding or rebound tenderness, nondistended. ) Extremities: non-tender, no pedal edema, no calf tenderness Neurologic/Psychiatric: alert, normal mood/affect, oriented x 3 Skin: normal color, warm/dry (Bita Doss PA-C) Laboratory Results Last 24 Hours Test 01/06/17 05:10 Urine Color YELLOW Urine Appearance CLEAR Urine pH 5.5 Urine Specific [place] 1.020 Urine Protein NEG Urine Glucose (UA) NEG Urine Ketones 1+ Urine Occult Blood NEG Urine Nitrite NEG Urine Bilirubin NEG Urine Urobilinogen NEG Urine Leukocyte Esterase NEG (Bita Doss PA-C) Assessment and Plan 36 yo F with abdominal pain and pmhx of bilateral mastectomy 2/2 to breast carcinoma. Abdominal Pain, epigastric - Present x past 11 days with waxing and waning symptoms. - Negative RUQ u/s, plan on HIDA scan today. She was initially supposed to have HIDA as an outpatient but came to ED d't worsening pain. - ? acalculous cholecystitis seems unlikely with lack of postprandial sx. Pt denies any changes in pain according to diet. No new medications, no recent trauma, increased exercise, etc. - Pain control with dilaudid 1 mg Q4H, pt has not required this every 4 hrs. - Antiemetics on board - Last bm was yesterday - Has not seen outpatient GI provider for these complaints - will need f/u regardless. - If HIDA is negative, pt tolerating diet, and pain is well controlled can continue this workup outpt. - She will likely will need outpatient colonoscopy. Breast Cancer s/p bilateral Mastectomy - Cont sincalide inj daily DVT ppx: SCDs, OOB CODE STATUS: FULL CODE Disposition: From home, dc possibly today or tomorrow depending on HIDA results. (Bita Doss PA-C) JAMES Physician Supervision Note: I interviewed and examined the patient. Discussed with Bita Doss PAC and agree with findings and plan as documented in the note. Any exceptions or clarifications are listed here: None Pt still with post prandial pain , HIDA is negative, still not feeling well and afraid to eat vss abd is soft, nabs, pain in epigastrium and RUQ will keep with pain control and have GI eval for possible motility issue with bowel or even biliary dyskinesia, she does have a history of IBS like sx Documented By: Alex Lange (Alex Lange M.D.)
--- NOTE | 2017-01-06 14:36 | DIAGNOSTIC IMAGING REPORT ---
NUCLEAR MEDICINE HEPATOBILIARY SCAN WITH EJECTION FRACTION ANALYSIS CLINICAL HISTORY: Right upper quadrant abdominal pain COMPARISON STUDY: Gallbladder ultrasound dated 01/05/2017 FINDINGS: The patient was injected with 5.5 mCi of technetium 99m Choletec. Sequential anterior imaging was performed. Hepatic excretion appeared unremarkable. The gallbladder was first visualized on the 20 minute image. At 1 hour, the patient was administered 1.4 mcg of sincalide utilizing a 30 minute intravenous infusion. There is normal patches of activity into small bowel. The gallbladder ejection fraction is normal measuring 71%. IMPRESSION: Normal study. No evidence of cystic duct obstruction. Normal gallbladder ejection fraction of 71%. Electronically signed by: Clarence Conley M.D. 01/06/2017 2:35 PM Dictated Date/Time: 01/06/2017 2:33 PM
[2017-01-06 14:55] VITALS: BP 106/69; PULSE 78; TEMP 36.6; O2SAT 97
--- NOTE | 2017-01-06 18:18 | GASTROINTESTINAL CONSULTATION ---
DATE OF CONSULTATION: 01/06/2017 REASON FOR EVALUATION: Severe abdominal pain. HISTORY OF PRESENT ILLNESS: The patient is a 36-year-old with known irritable bowel, having had a colonoscopy about 10 years ago in [place]. She has not taken any medication for irritable bowel and was doing well until December 26 when she experienced the onset of diffuse abdominal pain, worse in the epigastric area. There was no associated nausea or vomiting or change in bowels. She typically a little bit constipated. She subsequently developed a cough and runny nose, fever consistent with a viral type illness. She was seen in a walk-in clinic and was diagnosed with an upper respiratory infection. Because of her abdominal pain, an ultrasound of the abdomen was performed which came back normal. Follow up biliary scan was recommended to check for non-stone gallbladder disease. The patient reports that her pain was at times severe enough as a 10/10, but there were no associated symptoms and was not particularly related to food. She continues to eat normally through these episodes. She has had no dysuria or urinary symptoms. She does have polycystic ovary disease and has had a ruptured cyst in the past but this did not feel the same. She is also on control pills and her symptoms started at the very beginning of her menstrual cycle, right after her period ended. PAST MEDICAL HISTORY: Remarkable for irritable bowel with constipation. She has had breast cancer status post bilateral mastectomy with reconstruction. She has had a and had an Infusaport on the right side that was subsequently removed. FAMILY HISTORY: Positive for diabetes, cancer, hypertension, kidney stones. Mother had gallbladder out for biliary tract disease. 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 She is . She does not smoke. MEDICATIONS: Include control and Tums. ALLERGIES: None. REVIEW OF SYSTEMS: Positive for abdominal pain. Remainder is negative. PHYSICAL EXAMINATION: GENERAL: The patient appears awake, alert, in no acute distress. VITAL SIGNS: Normal. She is afebrile. ABDOMEN: Soft. There is a low transverse scar. There is mild tenderness in the epigastric area. No masses or rebound. Velasco sign is negative. IMPRESSION: The patient has a normal ultrasound, normal biliary scan, and normal labs. I suspect that her symptoms are from a flare up of an irritable bowel that was provoked by an infection and is currently appears to have resolved. At this point, I am not compelled to do any further intervention, either radiographically or endoscopically as long as the patient continues to improve. She is currently eating regular diet without any exacerbation of symptoms and if she continues to improve, I hope she can be discharged just to be followed as an outpatient in the future.
[2017-01-06] MEDS: ONDANSETRON INJ 2 MG/ML 2 ML VIAL IV PRN (22:19)
[2017-01-06 23:12] VITALS: BP 100/68; PULSE 83; TEMP 36.8; O2SAT 98
[2017-01-07] MEDS: SODIUM CHLOR 0.45% + 20MEQ KCL 1,000 ML IV SCH (06:24)
[2017-01-07 08:00] VITALS: BP 106/70; PULSE 72; TEMP 36.7; O2SAT 97
[2017-01-07 08:28] VITALS: O2SAT 97
[2017-01-07] MEDS ORDERED: ONDA4TAB10 SL (08:54)
--- NOTE | 2017-01-07 09:03 | Discharge Instructions ---
Discharge Instructions Admission Reason for Admission: Abdominal Pain Discharge Discharge Diagnosis / Problem: Abdominal Pain Discharge Goals Goal(s): Decrease discomfort, Improve function Activity Recommendations Activity Limitations: resume your previous activity Lifting Limitations: gradually increase as tolerated Exercise/Sports Limitations: gradually increase as tolerated May Resume Sexual Activity: when tolerated Shower/Bathe: no limitations Driving or Machine Use: no limitations . Instructions / Follow-Up Instructions / Follow-Up You were admitted to [facility] with with abdominal pain and diagnosed with abdominal pain secondary to gastritis and irritable bowel syndrome. During your stay here you were treated with intravenous pain medication and fluids, bowel rest and other supportive care. Imaging studies which were completed include a RUQ ultrasound which was negative for acute findings. A HIDA nuclear medicine scan was completed to evaluate the function of your gallbladder, and this was also normal. You have been set up to see [facility] on March 17, 2017. An appointment has been scheduled for you. Please discuss having a colonoscopy, endoscopy and motility studies with him at this appointment. Continue taking medications as prescribed. You have been given a prescription for zofran to help with nausea. You may take 4- 8 mg at a time, every 6 hours as needed, but no more than 24 mg within a 24 hour period. Current Hospital Diet Patient's current hospital diet: Regular Diet Discharge Diet Recommended Diet: Regular Diet Pending Studies Studies pending at discharge: no Medical Emergencies . Who to Call and When: Medical Emergencies: If at any time you feel your situation is an emergency, please call 911 immediately. . Non-Emergent Contact Non-Emergency issues call your: Primary Care Provider Call Non-Emergent contact if: you have a fever, your pain is not controlled, your pain is worsening, your pain is unusual for you, your pain is concerning you, you have any medication questions . Past History Medical & Surgical History: (1) Breast cancer (2) Abdominal pain (3) Epigastric abdominal pain (4) Nausea . "Provider Documentation" section prepared by Carlee Doss. VTE Core Measure Inpt VTE Proph given/why not?: SCD's
--- NOTE | 2017-01-07 09:26 | Discharge Summary ---
Discharge Summary Date of Service Jan 07, 2017. (Bita Doss PA-C) Discharge Summary Admission Date: Jan 05, 2017 at 15:30 Discharge Date: Jan 07, 2017 Discharge Disposition: Home Principal Diagnosis: Gastritis, irritable bowel flare Problems/Secondary Diagnoses: Flu-like symptoms, breast cancer 2011 s/p bilateral mastectomy in remission, irritable bowel syndrome Immunizations: Have You Had Influenza Vaccine: No History of Tetanus Vaccine?: Unknown History of Pneumococcal: No History of Hepatitis B Vaccine: No Procedures: Biliary ultrasound CLINICAL HISTORY: recurrent severe, epigastric abd pain COMPARISON STUDY: 12/26/2016 FINDINGS: The gallbladder appears sonographically normal. There is no ductal dilatation. The common bile duct measured 4 mm. There is no right-sided hydronephrosis. No hepatic masses are visualized. The pancreas was not visualized. IMPRESSION: Nonvisualization of the pancreas. Otherwise normal biliary ultrasound. Electronically signed by: Clarence Conley M.D. 01/05/2017 12:09 PM Dictated Date/Time: 01/05/2017 12:08 PM The status of this report is Signed. NUCLEAR MEDICINE HEPATOBILIARY SCAN WITH EJECTION FRACTION ANALYSIS CLINICAL HISTORY: Right upper quadrant abdominal pain COMPARISON STUDY: Gallbladder ultrasound dated 01/05/2017 FINDINGS: The patient was injected with 5.5 mCi of technetium 99m Choletec. Sequential anterior imaging was performed. Hepatic excretion appeared unremarkable. The gallbladder was first visualized on the 20 minute image. At 1 hour, the patient was administered 1.4 mcg of sincalide utilizing a 30 minute intravenous infusion. There is normal patches of activity into small bowel. The gallbladder ejection fraction is normal measuring 71%. IMPRESSION: Normal study. No evidence of cystic duct obstruction. Normal gallbladder ejection fraction of 71%. Electronically signed by: Clarence Conley M.D. 01/06/2017 2:35 PM Dictated Date/Time: 01/06/2017 2:33 PM The status of this report is Signed. Consultations: Gastroenterology (Bita Doss PA-C) Medication Reconciliation New Medications: Ondasetron Odt (Zofran Odt) 4 Mg Tab 4 MG SL Q6H PRN for nausea MDD 24mg, #30 TAB Continued Medications: Benzonatate (Tessalon Perles) 100 Mg Cap 100 MG PO Q8, CAP TAKE 100MG EVERY 8 HOURS FOR 10 DAYS Control Pills ( Control Pills) Tab 1 TAB PO HS, TAB Calcium Carbonate (Tums) 500 Mg Chew PRN for Acid Relux Discharge Exam The patient was seen and examined this morning. Pt reports abdominal pain is minimal today. She is tolerating a diet without difficulty. Pt is able to walk around the room without pain, she was encouraged to increase mobility today. Follow ups have been requested with Dr. Adorno within the next week. Discussion was held regarding outpatient workup with scopes and mobility studies. Denies fever, chills, sweats, sob, chest pain, abd pain, n/v/d. Pt last BM was 3 days ago but reports this is normal for her. Review of Systems: Constitutional: No chills, No fever, No sweats Eyes: No problem reported ENT: No problem reported Respiratory: No cough, No shortness of breath, No sputum Cardiovascular: No chest pain, No palpitations Abdomen: No nausea, No pain, No vomiting Musculoskeletal: No calf pain, No joint pain, No swelling Genitourinary - Female: No dysuria Neurologic: No balance problems, No numbness/tingling Endocrine: No fatigue Integumentary: No itch, No rash Physical Exam: General Appearance: WD/WN, no apparent distress Eyes: PERRL, EOMI ENT: hearing grossly normal, pharynx normal Neck: supple, no JVD Respiratory/Chest: chest non-tender, lungs clear, normal breath sounds, no respiratory distress, no accessory muscle use Cardiovascular: regular rate, rhythm, no murmur, normal peripheral pulses Abdomen / GI: normal bowel sounds, non tender, soft, no organomegaly, + pertinent finding (+ mild rebound tenderness but greatly improved, no guarding. ) Extremities: normal inspection, no calf tenderness, no pedal edema Neurologic/Psychiatric: oriented x 3 Skin: normal color, warm/dry (Bita Doss, LISA) Hospital Course H&P per Dr. Chavez HISTORY OF PRESENT ILLNESS: The patient is a very pleasant 36-year-old female who notes that she started about 10 days ago with abdominal pain but came to the hospital today because it got be to the point of almost unbearable. She notes about 10 days ago, she started with diffuse abdominal pain, maybe worst in the epigastric area but seemingly fairly diffuse all over. No nausea, vomiting, no change in her bowels at that point in time and then the next day she became ill with febrile, aching all over type of an illness that progressed to cough and congestion. She was diagnosed clinically with the flu and then throughout that time, her abdominal pain got worse. She then went to [facility] walk-in clinic, complaining mostly of cough and congestion but also because of the belly pain. She was evaluated for this and there was more concern about it possibly being biliary. She had a right upper quadrant ultrasound that was negative, followed up and then she was going to have a HIDA scan to be done tomorrow. Then this morning at work she started with abdominal pain, far worse again, sharp, intense, 10/10. She felt nauseated, hot and sweaty. She does not know if she had a true fever or not, but she definitely felt hot and then after IV pain and nausea medicines, her pain is improved to more like 2/10, although she notes once the pain meds start to wear off, she starts to feel worse again. She denies rigors, although she has had fevers and chills. She denies dysuria. She denies any real change in the pain with eating. She notes sometimes the pain comes on after eating, sometimes it does not but she feels like the eating is not really trigger that leads to the pain as much as just that the pain comes and goes and sometimes that coming and going randomly coincides with eating. She clearly does not relate anything worse after eating fatty foods. PHYSICAL EXAMINATION: VITAL SIGNS: Temperature 36.8, pulse 76, respiratory rate 14, blood pressure 122/78, 97% on room air. GENERAL: She is lying in bed, appears fatigued but otherwise in no acute distress. HEENT: Normocephalic, atraumatic. Mucous membranes are moist. CARDIOVASCULAR: Regular without rubs, murmurs, or gallops. LUNGS: Clear to auscultation bilaterally. No rales, rhonchi, or wheezes with good effort. ABDOMEN: Soft, nondistended. She has diffuse tenderness epigastric, probably more than left upper quadrant, more than right upper quadrant, more than everywhere else with some voluntary guarding but only to moderate to deep palpation. No rebound, no rigidity, negative Velasco sign. No masses or organomegaly. EXTREMITIES: Without cyanosis, clubbing or edema. No calf tenderness. SKIN: Shows no rashes. No pallor or icterus. NEUROLOGIC: Shows cranial nerves II-XII to be grossly intact. Gross motor and sensory are intact. MENTAL STATE: Shows good recent and remote recall. Normal mood and affect. Hospital Course: 36 yo F with abdominal pain and pmhx of bilateral mastectomy 2/2 to breast carcinoma found to have a normal RUQ ultrasound and HIDA scan during admission. She was seen by GI while admitted who determined she could be seen as an outpatient. Her pain improved with bowel rest, intravenous pain medications and fluids. Pt had an acute flare of irritable bowel in conjunction with upper repiratory infection. It is unknown if the URI prior to admission were subsequent or if they happened independently. Pt plans to follow up with GI within 1 week for follow up, discussion regarding scopes, and motility studies for chronic constipation. Abdominal Pain, epigastric - Present x past 11 days with waxing and waning symptoms - now resolving - Negative RUQ u/s, plan on HIDA scan today. She was initially supposed to have HIDA as an outpatient but came to ED d't worsening pain. - ? acalculous cholecystitis seems unlikely with lack of postprandial sx. Pt denies any changes in pain according to diet. No new medications, no recent trauma, increased exercise, etc. - Pain controlled without iv pain meds - Antiemetics on board - Last bm was yesterday - Has not seen outpatient GI provider for these complaints - will need f/u regardless. - If HIDA is negative, pt tolerating diet, and pain is well controlled can continue this workup outpt. - She will likely will need outpatient colonoscopy. Breast Cancer s/p bilateral Mastectomy - Cont sincalide inj daily DVT ppx: SCDs, OOB CODE STATUS: FULL CODE Disposition: From home, dc today, fu with GI Total Time Spent: Greater than 30 minutes This includes examination of the patient, discharge planning, medication reconciliation, and communication with other providers. (Bita Doss, LISA) PA Physician Supervision Note: I interviewed and examined the patient. Discussed with Bita Doss PAC and agree with findings and plan as documented in the note. Any exceptions or clarifications are listed here: None pt feels better only minimal abdominal pain vss abd is soft nabs, and mild epigastric pain agreeable to wait for GI motility appointment at [facility] in march Alex Lange MD Total Time Spent: Greater than 30 minutes (Alex Lange M.D.) Discharge Instructions Please refer to the electronic Patient Visit Report (Discharge Instructions) for additional information. (Bita Doss, LISA) Follow-Up Follow up with your Primary Care Provider within 1 week. Follow up with GI, Dr. Adorno, within 1 week. (Bita Doss PA-C)
[2017-01-07 10:19] VITALS: BP 106/70; PULSE 72; TEMP 36.7; O2SAT 97
[2017-01-20] MEDS ORDERED: BCPILLS PO (11:41)
[2017-01-23] MEDS ORDERED: ALUMSUS2 PO (11:36)
[2017-01-23] MEDS ORDERED: RANI150T3 PO (11:36)
[2017-01-23] MEDS ORDERED: ONDA4TAB46 PO (11:36)
== END 2017-01-07 10:50 | disposition home or self-care (01) ==
LOC: ENRESERVDT → CANRESERV → ENRESERVTM → C.EDB 09:28 → C.MSW 15:30 → EDBEDREQSVC 16:23
PROVIDERS: ADMIT Family Medicine; ATTEND Family Medicine
DX: K29.70 Gastritis, unspecified, without bleeding (principal); K58.8 Other irritable bowel syndrome; R10.13 Epigastric pain; Z85.3 Personal history of malignant neoplasm of breast; Z83.3 Family history of diabetes mellitus; Z82.49 Family history of ischemic heart disease and other diseases of the circulatory system; Z84.1 Family history of disorders of kidney and ureter; Z83.6 Family history of other diseases of the respiratory system; Z82.0 Family history of epilepsy and other diseases of the nervous system; Z90.13 Acquired absence of bilateral breasts and nipples

== ENCOUNTER 2017-01-20 20:53 | Emergency (ER) | payer BC ==
[~2017-01-20] VITALS: Ht 160 cm; Wt 64.5 kg
[~2017-01-20 20:53] MED LIST changes: +BCPILLS PO; +BENZ100C84 PO; +ONDA4TAB10 SL
[2017-01-20 20:56] VITALS: TEMP 36.5; Ht 160 cm; Wt 64.5 kg
[2017-01-20] MEDS ORDERED: GI COCKTAIL PO STA (21:19)
[2017-01-20] MEDS ORDERED: PANTOprazole INJ 40 MG in SYRINGE 0 ML IV ONE (21:30)
[2017-01-20] MEDS ORDERED: LIDOCAINE HCL 2% VISC SOLN 20 ML UDC ONE (21:47)
[2017-01-20] MEDS ORDERED: ALUMINUM/MAGNESIUM SUSP 30 ML UDC ONE (21:47)
[2017-01-20] MEDS ORDERED: MISCCAP80 PO (21:48)
[2017-01-20] MEDS ORDERED: DICY10CA55 PO (21:48)
[2017-01-20] MEDS ORDERED: PRLSR20 PO (21:48)
[2017-01-20 22:00] LABS: BASO % 0.3 %; BASO ABS # 0.02 K/uL (0-0.2); COMPLETE YES; EOS % 4.6 %; HEMATOCRIT 34.4 % (37-47); LYMPH ABS # 2.42 K/uL (1.2-3.4); MEAN CELL VOLUME 88.4 fL (80-100); MEAN CORPUSCULAR HEMOGLOBIN 30.3 pg (25-34); MEAN CORPUSCULAR HGB CONC 34.3 g/dl (32-36); MEAN PLATELET VOLUME 10.1 fL (7.4-10.4); MONO % 9.8 %; NEUT % 48.3 %; PLATELET COUNT 270 K/uL (130-400); RED BLOOD COUNT 3.89 M/uL (4.2-5.4); WHITE BLOOD COUNT 6.54 K/uL (4.8-10.8)
[2017-01-20 22:06] LABS: URINE APPEARANCE CLEAR (CLEAR); URINE BILIRUBIN NEG (NEG); URINE COLOR YELLOW; URINE NITRITE NEG (NEG); UROBILINOGEN NEG (NEG); ZZUR CULT IF INDIC CLEAN CATCH NO
[2017-01-20 22:10] LABS: MANUAL MICROSCOPIC REQUIRED? NO; REVIEW REQ? NO
[2017-01-20 22:15] LABS: CALCIUM 8.5 mg/dl (8.5-10.1); CREATININE 0.67 mg/dl (0.60-1.20); POTASSIUM 3.4 mmol/L (3.5-5.1)
[2017-01-20 22:18] LABS: ALB/GLOB RATIO 0.9 (0.9-2)
--- NOTE | 2017-01-20 22:28 | DIAGNOSTIC IMAGING REPORT ---
ABDOMEN 2VIEW W/PA CHEST RTN CLINICAL HISTORY: epigastric pain pain COMPARISON STUDY: 12/26/2016 FINDINGS: Focus of a left retrocardiac increase in density lungs otherwise appear clear bowel pattern is nonobstructive. Moderate increase in colonic fecal load. IMPRESSION: 1. Increased density left retrocardiac region, possibly inflammatory although follow-up to resolution is suggested . 2. Increased fecal load throughout the colon Electronically signed by: Anthony Patrick M.D. 01/20/2017 10:27 PM Dictated Date/Time: 01/20/2017 10:25 PM
[2017-01-20] MEDS ORDERED: HYDR-5688 PO (22:45)
[2017-01-20] MEDS ORDERED: NORCO 5/325MG HOME PACK PO ONE (22:45)
--- NOTE | 2017-01-20 22:47 | EMERGENCY ROOM VISIT NOTE ---
History First contact with patient: 21:02 Chief Complaint: ABDOMINAL PAIN Stated Complaint: SEVERE STOMACH PAIN Nursing Triage Summary: continues with abdominal pain, epigastric. intermittent but pain is worse when it hit she nausea with the pain but not vomiting History of Present Illness The patient is a 36 year old female who presents to the Emergency Room with complaints of epigastric abdominal pain for the past few weeks. The patient was seen here and admitted approximately 2 weeks ago. She had a HIDA scan which showed no biliary disease. The patient was discharged home on Zofran. She reports that she followed up with her primary care provider, who started her on probiotics, Bentyl and Prilosec. She does state that she felt she had some relief, but still has severe epigastric abdominal pain. The pain is intermittent and she rates it a 10/10 when it occurs. She did see a job estimator earlier this month and they scheduled her for an upper endoscopy next month. The patient has a history of IBS, breast cancer in remission and PCOS. She denies any nausea, vomiting, fevers, chest pain, shortness of breath or changes in bowel movements. She denies any blood in her stools. She denies any urinary symptoms. Review of Systems A complete 10-point Review of Systems was discussed with the patient, with pertinent positives and negatives listed in the History of Present Illness. All remaining Review of Systems questions can be considered negative unless otherwise specified. Past Medical/Surgical History Medical Problems: (1) Abdominal pain (2) Breast cancer (3) No Known Active Medical Problems Surgical Problems: (1) H/O section Family History Cancer Diabetes mellitus Hypertension Kidney stones Lung disease Seizures Social History Smoking Status: Never Smoker Drug Use: none Marital Status: Housing Status: lives with family Occupation Status: employed Current/Historical Medications Scheduled Control Pills ( Control Pills), 1 TAB PO HS Omeprazole (Prilosec), 20 MG PO DAILY Probiotic Product (Probiotic), 1 CAP PO DAILY Scheduled PRN Dicyclomine Hcl (Bentyl), 10 MG PO TID PRN for Pain Hydrocodone/Acetaminophen 5MG/325MG ([place] 5MG/325MG), 1-2 TABLET PO Q4H PRN for Pain Allergies Coded Allergies: No Known Allergies (Verified , 01/05/17) Physical Exam Vital Signs Date Time Temp Pulse Resp B/P Pulse Ox O2 Delivery O2 Flow Rate FiO2 01/20/17 22:54 62 20 127/72 99 Room Air 01/20/17 21:56 69 20 125/75 98 Room Air 01/20/17 20:56 36.5 84 16 124/83 99 Room Air Physical Exam VITALS: Vitals are noted on the nurse's note and reviewed by myself. Vital signs stable. GENERAL: This is a 36-year-old female, in no acute distress, nondiaphoretic, well-developed well-nourished. SKIN: Capillary reflex less than 2 seconds. HEENT: Normocephalic. PERRLA. EOMI. Nares patent. Mucous membranes moist. Neck is supple without nuchal rigidity. HEART: Regular rate and rhythm without murmurs gallops or rubs. LUNGS: Clear to auscultation bilaterally without wheezes, rales or rhonchi. ABDOMEN: Positive bowel sounds x 4. Soft, nondistended with moderate epigastric tenderness and mild diffuse tenderness. No guarding or rebound tenderness. NEURO: Patient was alert and oriented to person place and time. Medical Decision & Procedures ER Provider Diagnostic Interpretation: ABDOMEN 2VIEW W/PA CHEST RTN CLINICAL HISTORY: epigastric pain pain COMPARISON STUDY: 12/26/2016 FINDINGS: Focus of a left retrocardiac increase in density lungs otherwise appear clear bowel pattern is nonobstructive. Moderate increase in colonic fecal load. IMPRESSION: 1. Increased density left retrocardiac region, possibly inflammatory although follow-up to resolution is suggested . 2. Increased fecal load throughout the colon Laboratory Results 01/20/17 21:45 Red Blood Count 3.89, Mean Corpuscular Volume 88.4, Mean Corpuscular Hemoglobin 30.3, Mean Corpuscular Hemoglobin Concent 34.3, Mean Platelet Volume 10.1, Neutrophils (%) (Auto) 48.3, Lymphocytes (%) (Auto) 37.0, Monocytes (%) (Auto) 9.8, Eosinophils (%) (Auto) 4.6, Basophils (%) (Auto) 0.3, Neutrophils # (Auto) 3.16, Lymphocytes # (Auto) 2.42, Monocytes # (Auto) 0.64, Eosinophils # (Auto) 0.30, Basophils # (Auto) 0.02 01/20/17 21:45 Test 01/20/17 21:45 White Blood Count 6.54 K/uL (4.8-10.8) Red Blood Count 3.89 M/uL (4.2-5.4) Hemoglobin 11.8 g/dL (12.0-16.0) Hematocrit 34.4 % (37-47) Mean Corpuscular Volume 88.4 fL (80-100) Mean Corpuscular Hemoglobin 30.3 pg (25-34) Mean Corpuscular Hemoglobin Concent 34.3 g/dl (32-36) Platelet Count 270 K/uL (130-400) Mean Platelet Volume 10.1 fL (7.4-10.4) Neutrophils (%) (Auto) 48.3 % Lymphocytes (%) (Auto) 37.0 % Monocytes (%) (Auto) 9.8 % Eosinophils (%) (Auto) 4.6 % Basophils (%) (Auto) 0.3 % Neutrophils # (Auto) 3.16 K/uL (1.4-6.5) Lymphocytes # (Auto) 2.42 K/uL (1.2-3.4) Monocytes # (Auto) 0.64 K/uL (0.11-0.59) Eosinophils # (Auto) 0.30 K/uL (0-0.5) Basophils # (Auto) 0.02 K/uL (0-0.2) RDW Standard Deviation 41.9 fL (36.4-46.3) RDW Coefficient of Variation 13.1 % (11.5-14.5) Immature Granulocyte % (Auto) 0.0 % Immature Granulocyte # (Auto) 0.00 K/uL (0.00-0.02) Urine Color YELLOW Urine Appearance CLEAR (CLEAR) Urine pH 8.0 (4.5-7.5) Urine Specific [place] 1.000 (1.000-1.030) Urine Protein NEG (NEG) Urine Glucose (UA) NEG (NEG) Urine Ketones NEG (NEG) Urine Occult Blood NEG (NEG) Urine Nitrite NEG (NEG) Urine Bilirubin NEG (NEG) Urine Urobilinogen NEG (NEG) Urine Leukocyte Esterase TRACE (NEG) Urine WBC (Auto) 0 /hpf (0-5) Urine RBC (Auto) 0-4 /hpf (0-4) Urine Hyaline Casts (Auto) 1-5 /lpf (0-5) Urine Epithelial Cells (Auto) 10-20 /lpf (0-5) Urine Bacteria (Auto) NEG (NEG) Urine Test NEG (NEG) Anion Gap 10.0 mmol/L (3-11) Est Creatinine Clear Calc Drug Dose 102.9 ml/min Estimated GFR () 129.2 Estimated GFR (Non- 111.5 BUN/Creatinine Ratio 13.0 (10-20) Calcium Level 8.5 mg/dl (8.5-10.1) Total Bilirubin 0.4 mg/dl (0.2-1) Aspartate Amino Transf (AST/SGOT) 11 U/L (15-37) Alanine Aminotransferase (ALT/SGPT) 17 U/L (12-78) Alkaline Phosphatase 49 U/L (45-117) Total Protein 6.7 gm/dl (6.4-8.2) Albumin 3.2 gm/dl (3.4-5.0) Globulin 3.5 gm/dl (2.5-4.0) Albumin/Globulin Ratio 0.9 (0.9-2) Lipase 227 U/L (73-393) Medications Administered Medications (Trade) Dose Ordered Sig/Babatunde Route Start Time Stop Time Status Last Admin Dose Admin Miscellaneous Medication 24 ml 24 ml NOW STAT PO 01/20/17 21:19 01/20/17 21:20 DC 01/20/17 21:19 24 ML Pantoprazole Sodium/Syringe (Protonix Inj/ Syringe) 10 ml @ 5 mls/min NOW ONCE IV 01/20/17 21:30 01/20/17 21:31 DC 01/20/17 21:39 5 MLS/MIN Al Hydroxide/Mg Hydroxide (Maalox Susp) 30 ml STK-MED ONCE .ROUTE 01/20/17 21:47 01/20/17 21:51 DC 01/20/17 21:52 30 ML Lidocaine HCl (Viscous Lidocaine 2% Soln) 20 ml STK-MED ONCE .ROUTE 01/20/17 21:47 01/20/17 21:51 DC 01/20/17 21:52 20 ML Acetaminophen/ Hydrocodone Bitart ([place] 5/325mg Home Pack) 1 homepack UD ONCE PO 01/20/17 22:45 01/20/17 22:46 DC 01/20/17 22:53 1 HOMEPACK Medical Decision Differential diagnosis includes GERD, gastritis, IBS, peptic ulcer disease, cholecystitis, pancreatitis, acute hepatitis, perforated viscus, gastroenteritis , among others. The patient was evaluated as above. Labs were drawn and IV access was obtained. Imaging studies were performed and read by radiology as above. The patient was medicated with a GI cocktail and IV Protonix. The patient was reassessed multiple times during their stay in the emergency department and remained in stable condition. The patient is a 36-year-old female who presents today complaining of persistent epigastric abdominal pain. The patient had a previous admission last month for the same symptoms. At that time, a HIDA scan was done and did not show any evidence of biliary disease. The patient has had a recent CT which was negative. The patient has followed up with gastroenterology, who scheduled her for an upper endoscopy. Labs today did reveal a slight anemia which is new from her last visit. There was no leukocytosis or concerning electrolyte abnormality. Urinalysis was not suggestive of infection. Urine was negative. Abdominal series was read by radiology and did show increased fecal load was in the colon, which the patient reports is normal for her. There was a possible finding of inflammation in the retrocardiac region which is of unclear significance. The patient is mildly tenderness in the epigastric region but does not present with a surgical abdomen. She is afebrile and nontoxic. She did report an improvement of her pain after treatment with a GI cocktail and IV Protonix. I do not feel that the patient needs admitted at this time. I did speak with case management, he will call gastrology neurology in the morning and attempt to make the patient an appointment within the next 1-2 weeks for her EGD and further evaluation. I recommended the patient take Zantac in addition to her other daily medications and did give her a short course of [place] for pain. She was also instructed to follow-up with her primary care provider. She understands to return if she has worsening of her current condition or any new/concerning symptoms. Based on the patient's presentation, lab results, and imaging studies, I feel the patient is stable for outpatient treatment. The patient's case was reviewed with Dr. Oliva, ED attending physician, who agreed with my assessment and treatment plan. Discharge instructions were reviewed with the patient. The patient verbalized understanding of my assessment and treatment plan and was discharged home in good condition. [place] Drug Monitoring Program Search Results: patient reviewed within database, no issues identified Impression Primary Impression: Epigastric abdominal pain Departure Information Dispostion Home / Self-Care Condition GOOD Prescriptions Hydrocodone/Acetaminophen 5MG/325MG ([place] 5MG/325MG) Tab 1-2 TABLET PO Q4H Y for Pain, #15 TAB For Initial Treatment Prov: Mariama Michel PA-C 01/20/17 Referrals Waqas Ramirez M.D. (PCP) Patient Instructions My [facility] Additional Instructions You have been treated in the Emergency Department for your Abdominal Pain. Laboratory results and imaging studies have ruled out any emergent causes for your abdominal pain which would warrant admission or surgery. You have been prescribed [place] to be used for pain control. This is a narcotic medication. You cannot drive or consume alcohol while on this medicine. This medicine should only be used for pain that cannot be controlled with over-the- counter pain medicines. This medication may cause constipation. You should take a stool softener while taking this medication. Continue your medications as prescribed. You may start Zantac, 75 mg daily at night. This is an [id number] medication. For pain control, you can use the following [id number] medicines (if >12 yo): - Regular strength (325mg/tab) Tylenol (acetaminophen) 2 tabs every 4-6 hours as needed. Do not exceed 12 tablets in a 24 hour period. Avoid taking more than 4 grams (4000 mg) of Tylenol per day. This includes any other sources of acetaminophen you may take on a regular basis. Drink plenty of water and stay well hydrated. You should call your primary care provider and schedule a follow-up appointment within 2-3 days. Follow-up with gastroenterology. Return to the emergency department if your symptoms persist despite treatment plan outlined above or if the following symptoms occur: fevers, chills, worsening nausea/vomiting, blood in your stool or urine.
[2017-01-20 22:54] VITALS: BP 127/72; PULSE 62; O2SAT 99
[2017-01-23] MEDS ORDERED: ALUMSUS2 PO (11:36)
[2017-01-23] MEDS ORDERED: RANI150T3 PO (11:36)
[2017-01-23] MEDS ORDERED: ONDA4TAB46 PO (11:36)
== END 2017-01-20 22:59 | disposition home or self-care (01) ==
LOC: C.EDB 20:55
DX: R10.13 Epigastric pain (principal); K58.9 Irritable bowel syndrome, unspecified; Z85.3 Personal history of malignant neoplasm of breast; E28.2 Polycystic ovarian syndrome; Z80.9 Family history of malignant neoplasm, unspecified; Z83.3 Family history of diabetes mellitus; Z82.49 Family history of ischemic heart disease and other diseases of the circulatory system; Z84.1 Family history of disorders of kidney and ureter; Z83.6 Family history of other diseases of the respiratory system; Z79.3 Long term (current) use of hormonal contraceptives; Z79.899 Other long term (current) drug therapy

== ENCOUNTER → 2017-01-30 | Day surgery (SDC) | payer BC ==
[2017-01-23 11:27] VITALS: BMI 26.0
[~2017-01-30] VITALS: Ht 160 cm; Wt 68.2 kg
[~2017-01-30] MED LIST changes: +ALUMSUS2 PO; -BENZ100C84 PO; -CALC500C3; +DICY10CA55 PO; +LIDOCAINE HCL 2% 2 ML VIAL (20MG/ML) ONE; +MISCCAP80 PO; -ONDA4TAB10 SL; +ONDA4TAB46 PO; +PRLSR20 PO; +PROPOFOL IV EMULSION 10 MG/ML 20 ML VIAL IV ONE; +RANI150T3 PO; +SODIUM CHLORIDE 0.9% 500ML 500 ML IV ONE
[2017-01-30 09:05] VITALS: Ht 160 cm; Wt 68.2 kg
--- NOTE | 2017-01-30 09:40 | Endo History and Physical ---
History & Physical Date of Service: Jan 30, 2017. Chief Complaint: Epigastric abdominal pain Referring Physician: Dr. Ramirez History of Present Illness 36 yo CF who presents for EGD secondary to epigastric abdominal pain. Past Medical History Gastrointestinal Disorder, Cancer Past Surgical History Hx Cardiac Surgery: No Hx Internal Defibrillator: No Hx Pacemaker: No Hx Abdominal Surgery: Yes () Hx of Implantable Prosthesis: No Hx Post-Op Nausea and Vomiting: No Hx Cancer Surgery: Yes (BLT MASTECTOMY WITH IMPLANT BASED RECONSTRUCTION) Hx Thoracic Surgery: No Hx Orthopedic: No Hx Urinary Tract Surgery: No Family History None Social History Smoking Status: Never Smoker Hx Substance Use: No Hx Alcohol Use: No Allergies Coded Allergies: No Known Allergies (Verified , 01/23/17) Current Medications Reported Home Medications Medications Dose Route/Sig Max Daily Dose Days Date Category Maalox Max Susp (Al Hydrox/Mg Hydrox/Simethicone) Susp 2 Tsp PO HS 01/23/17 Reported Zantac (Ranitidine HCl) 150 Mg Tab 150 Mg PO HS 01/23/17 Reported Zofran (Ondansetron HCl) 4 Mg Tab 4 Mg PO TID PRN 01/23/17 Reported Bentyl (Dicyclomine Hcl) 10 Mg Cap 10 Mg PO TID PRN 01/20/17 Reported Probiotic (Probiotic Product) 1 Cap Cap 1 Cap PO QAM 01/20/17 Reported Prilosec (Omeprazole) 20 Mg Capcr 20 Mg PO QAM 01/20/17 Reported Control Pills (Miscellaneous) Tab 1 Tab PO HS 10/17/15 Reported Vital Signs Weight (Kilograms): 68.18 Height (Feet): 5 Height (Inches): 3 Physical Exam General Appearance: WD/WN, no apparent distress Respiratory/Chest: Auscultation: breath sounds normal Cardiovascular: Heart Auscultation: RRR Abdomen: Bowel Sounds: normal Inspection & Palpation: soft, non-distended, no tenderness, guarding & rebound Assessment and Plan Assessment: 36 yo CF who presents for EGD secondary to epigastric abdominal pain. Plan: Proceed with EGD.
--- NOTE | 2017-01-30 10:25 | GI REPORT ---
Procedure Date: 01/30/2017 9:28 AM Procedure: Upper GI endoscopy Indications: Epigastric abdominal pain Medicines: Monitored Anesthesia Care Complications: No immediate complications. Estimated Blood Loss: Estimated blood loss: none. Procedure: Pre-Anesthesia Assessment: - Prior to the procedure, a History and Physical was performed, and patient medications and allergies were reviewed. The patient's tolerance of previous anesthesia was also reviewed. The risks and benefits of the procedure and the sedation options and risks were discussed with the patient. All questions were answered, and informed consent was obtained. Prior Anticoagulants: The patient has taken no previous anticoagulant or antiplatelet agents. ASA Grade Assessment: II - A patient with mild systemic disease. After reviewing the risks and benefits, the patient was deemed in satisfactory condition to undergo the procedure. After obtaining informed consent, the endoscope was passed under direct vision. Throughout the procedure, the patient's blood pressure, pulse, and oxygen saturations were monitored continuously. The scope was introduced through the mouth, and advanced to the second part of duodenum. The upper GI endoscopy was accomplished without difficulty. The patient tolerated the procedure well. Findings: The Z-line was irregular. The entire examined stomach was normal. Biopsies were taken with a cold forceps for Helicobacter pylori testing. The examined duodenum was normal. Impression: - Z-line irregular. - Normal stomach. Biopsied. - Normal examined duodenum. Recommendation: - Resume previous diet. - Continue present medications. - Await pathology results. - Return to GI clinic as previously scheduled. Ye Starkey DO 01/30/2017 10:26:03 AM This report has been signed electronically. Note Initiated On: 01/30/2017 9:28 AM I attest to the content of the Intraoperative Record and orders documented therein, exceptions below
--- NOTE | 2017-01-30 10:27 | Discharge Instructions ---
Endoscopy Patient Instructions Date / Procedure(s) Performed Jan 30, 2017. EGD Allergy Information Coded Allergies: No Known Allergies (Verified , 01/30/17) Discharge Date / Findings Jan 30, 2017. Normal EGD with Gastric biopsies Medication Instructions Stopped Medication(s): only take the Prilosec OK to resume all medications today as prescribed. Reported Home Medications Medications Dose Route/Sig Max Daily Dose Days Date Category Maalox Max Susp (Al Hydrox/Mg Hydrox/Simethicone) Susp 2 Tsp PO HS 01/23/17 Reported Zantac (Ranitidine HCl) 150 Mg Tab 150 Mg PO HS 01/23/17 Reported Zofran (Ondansetron HCl) 4 Mg Tab 4 Mg PO TID PRN 01/23/17 Reported Bentyl (Dicyclomine Hcl) 10 Mg Cap 10 Mg PO TID PRN 01/20/17 Reported Probiotic (Probiotic Product) 1 Cap Cap 1 Cap PO QAM 01/20/17 Reported Prilosec (Omeprazole) 20 Mg Capcr 20 Mg PO QAM 01/20/17 Reported Control Pills (Miscellaneous) Tab 1 Tab PO HS 10/17/15 Reported Provider Instructions Activity Restrictions - No exercising or heavy lifting for 24 hours. - Do not drink alcohol the day of the procedure. - Do not drive a car or operate machinery until the day after the procedure. - Do not make any important decisions or sign important papers in 24 hours after the procedure. Following Day: - Return to full activity which may include returning to work/school. Diet Start your diet with liquids and light foods (jello, soup, juice, toast). Then eat your usual diet if not nauseated. Treatment For Common After Affects For mild abdominal pain, bloating, or excessive gas: - Rest - Eat lightly - Lie on right side Follow-Up Information Follow-up with Dr. Ramirez as scheduled Anesthesia Information What You Should Know You have had a procedure that required some medicine to reduce anxiety and discomfort. This treatment is called moderate sedation. After receiving the treatment, you may be sleepy, but you will be able to breathe on your own. The effects of the treatment may last for several hours. Follow these instructions along with Activity/Diet recommendations noted above: * Do NOT do anything where dizziness or clumsiness would be dangerous. * Rest quietly at home today, then you can be up and about tomorrow. * Have a responsible person stay with you the rest of today. * You may have had an I.V. today. If so, you may take the dressing off later today. Recommendations Call your doctor if: * Trouble breathing * Continuous vomiting for more than 24 hours * Temperature above 101 degrees * Severe abdominal pain or bloating * Pain not relieved by pain medicine ordered * There is increased drainage or redness from any incision * A large amount of rectal bleeding greater than 2-3 tablespoons. (If you had a polyp/s removed or have hemorrhoids, a small amount of blood - from the rectum is to be expected.) * You have any unanswered questions or concerns. IN THE EVENT OF A SERIOUS EMERGENCY, GO TO THE NEAREST EMERGENCY ROOM Your discharge instructions were prepared by provider Ye Starkey. Patient Instructions Signature Page Ronny Acosta Patient (or Guardian) Signature/Date: I have read and understand the instructions given to me by my caregivers. Caregiver/RN/Doctor Signature/Date: The above-named patient and/or guardian has received patient instructions on this date. + Original Patient Signature Page (only) stays with chart. Please make copy for patient.
[2017-01-30 10:45] VITALS: BP 104/61; PULSE 78; O2SAT 100
--- NOTE | 2017-01-30 11:08 | Anesthesiology Progress Note ---
Anesthesia Post Op Note Date & Time Jan 30, 2017 at 11:07 Vital Signs Pain Intensity: 0 Vital Signs Past 12 Hours Date Time Temp Pulse Resp B/P Pulse Ox O2 Delivery O2 Flow Rate FiO2 01/30/17 10:35 77 18 107/68 100 Room Air 01/30/17 10:25 79 12 97/54 99 Room Air 01/30/17 10:16 70 12 72/31 100 01/30/17 09:16 36.4 75 20 124/67 100 Room Air Notes Mental Status: alert / awake / arousable, participated in evaluation Pt Amnestic to Procedure: Yes Nausea / Vomiting: adequately controlled Pain: adequately controlled Airway Patency, RR, SpO2: stable & adequate BP & HR: stable & adequate Hydration State: stable & adequate Anesthetic Complications: no major complications apparent
== END | disposition home or self-care (01) ==
LOC: C.GI 08:38
PROVIDERS: ATTEND Internal Medicine
DX: R10.13 Epigastric pain (principal); Z90.13 Acquired absence of bilateral breasts and nipples; Z79.3 Long term (current) use of hormonal contraceptives

== ENCOUNTER → 2017-02-10 | Day surgery (SDC) | payer BC ==
[2017-02-09 07:41] VITALS: Ht 160 cm; Wt 68.2 kg
[~2017-02-10] VITALS: Ht 160 cm; Wt 68.2 kg
[~2017-02-10] MED LIST changes: +MIDAZOLAM HCL 1 MG/ML 2ML VIAL ONE; +ONDANSETRON INJ 2 MG/ML 2 ML VIAL ONE
--- NOTE | 2017-02-10 10:00 | Endo History and Physical ---
History & Physical Date of Service: Feb 10, 2017. Chief Complaint: Abdominal pain Referring Physician: Dr. Waqas Ramirez,Nancie WILLARD History of Present Illness 36 yo CF who presents for colonoscopy secondary to abdominal pain. Past Medical History Gastrointestinal Disorder, Cancer Past Surgical History Hx Cardiac Surgery: No Hx Internal Defibrillator: No Hx Pacemaker: No Hx Abdominal Surgery: Yes () Hx of Implantable Prosthesis: No Hx Post-Op Nausea and Vomiting: No Hx Cancer Surgery: Yes (BLT MASTECTOMY WITH IMPLANT BASED RECONSTRUCTION) Hx Thoracic Surgery: No Hx Orthopedic: No Hx Urinary Tract Surgery: No Family History None Social History Smoking Status: Never Smoker Hx Substance Use: No Hx Alcohol Use: No Allergies Coded Allergies: No Known Allergies (Verified , 02/09/17) Current Medications Reported Home Medications Medications Dose Route/Sig Max Daily Dose Days Date Category Maalox Max Susp (Al Hydrox/Mg Hydrox/Simethicone) Susp 2 Tsp PO HS 01/23/17 Reported Zantac (Ranitidine HCl) 150 Mg Tab 150 Mg PO HS 01/23/17 Reported Zofran (Ondansetron HCl) 4 Mg Tab 4 Mg PO TID PRN 01/23/17 Reported Bentyl (Dicyclomine Hcl) 10 Mg Cap 10 Mg PO TID PRN 01/20/17 Reported Probiotic (Probiotic Product) 1 Cap Cap 1 Cap PO QAM 01/20/17 Reported Prilosec (Omeprazole) 20 Mg Capcr 20 Mg PO QAM 01/20/17 Reported Control Pills (Miscellaneous) Tab 1 Tab PO HS 10/17/15 Reported Vital Signs Weight (Kilograms): 68.18 Height (Feet): 5 Height (Inches): 3 Date Time Temp Pulse Resp B/P Pulse Ox O2 Delivery O2 Flow Rate FiO2 02/10/17 09:01 36.7 68 20 126/65 100 Room Air Physical Exam General Appearance: WD/WN, no apparent distress Respiratory/Chest: Auscultation: breath sounds normal Cardiovascular: Heart Auscultation: RRR Abdomen: Bowel Sounds: normal Inspection & Palpation: soft, non-distended, no tenderness, guarding & rebound Assessment and Plan Assessment: 36 yo CF who presents for colonoscopy secondary to abdominal pain. Plan: Proceed with colonoscopy.
--- NOTE | 2017-02-10 10:31 | GI REPORT ---
Procedure Date: 02/10/2017 10:09 AM Procedure: Colonoscopy Indications: Generalized abdominal pain Medicines: Monitored Anesthesia Care Complications: No immediate complications. Estimated Blood Loss: Estimated blood loss: none. Procedure: Pre-Anesthesia Assessment: - Prior to the procedure, a History and Physical was performed, and patient medications and allergies were reviewed. The patient's tolerance of previous anesthesia was also reviewed. The risks and benefits of the procedure and the sedation options and risks were discussed with the patient. All questions were answered, and informed consent was obtained. Prior Anticoagulants: The patient has taken no previous anticoagulant or antiplatelet agents. ASA Grade Assessment: II - A patient with mild systemic disease. After reviewing the risks and benefits, the patient was deemed in satisfactory condition to undergo the procedure. After I obtained informed consent, the scope was passed under direct vision. Throughout the procedure, the patient's blood pressure, pulse, and oxygen saturations were monitored continuously. The scope was introduced through the anus and advanced to the terminal ileum. The colonoscopy was performed without difficulty. The patient tolerated the procedure well. The quality of the bowel preparation was good. The terminal ileum, ileocecal valve, appendiceal orifice, and rectum were photographed. Findings: Non-bleeding internal hemorrhoids were found during retroflexion. The hemorrhoids were small. The exam was otherwise without abnormality. Impression: - Non-bleeding internal hemorrhoids. - The examination was otherwise normal. - No specimens collected. Recommendation: - Resume previous diet. - Continue present medications. - Repeat colonoscopy at age 48 for surveillance. - Return to primary care physician as previously scheduled. Ye Starkey DO 02/10/2017 10:30:07 AM This report has been signed electronically. Note Initiated On: 02/10/2017 10:09 AM I attest to the content of the Intraoperative Record and orders documented therein, exceptions below
--- NOTE | 2017-02-10 10:40 | Discharge Instructions ---
Endoscopy Patient Instructions Date / Procedure(s) Performed Feb 10, 2017. Colonoscopy Allergy Information Coded Allergies: No Known Allergies (Verified , 02/09/17) Discharge Date / Findings Feb 10, 2017. Internal hemorrhoids Medication Instructions OK to resume all medications today as prescribed Reported Home Medications Medications Dose Route/Sig Max Daily Dose Days Date Category Maalox Max Susp (Al Hydrox/Mg Hydrox/Simethicone) Susp 2 Tsp PO HS 01/23/17 Reported Zantac (Ranitidine HCl) 150 Mg Tab 150 Mg PO HS 01/23/17 Reported Zofran (Ondansetron HCl) 4 Mg Tab 4 Mg PO TID PRN 01/23/17 Reported Bentyl (Dicyclomine Hcl) 10 Mg Cap 10 Mg PO TID PRN 01/20/17 Reported Probiotic (Probiotic Product) 1 Cap Cap 1 Cap PO QAM 01/20/17 Reported Prilosec (Omeprazole) 20 Mg Capcr 20 Mg PO QAM 01/20/17 Reported Control Pills (Miscellaneous) Tab 1 Tab PO HS 10/17/15 Reported Provider Instructions Activity Restrictions - No exercising or heavy lifting for 24 hours. - Do not drink alcohol the day of the procedure. - Do not drive a car or operate machinery until the day after the procedure. - Do not make any important decisions or sign important papers in 24 hours after the procedure. Following Day: - Return to full activity which may include returning to work/school. Diet Start your diet with liquids and light foods (jello, soup, juice, toast). Then eat your usual diet if not nauseated. Treatment For Common After Affects For mild abdominal pain, bloating, or excessive gas: - Rest - Eat lightly - Lie on right side Follow-Up Information Follow-up with Dr. Waqas Ramirez,Nancie WILLARD as scheduled Anesthesia Information What You Should Know You have had a procedure that required some medicine to reduce anxiety and discomfort. This treatment is called moderate sedation. After receiving the treatment, you may be sleepy, but you will be able to breathe on your own. The effects of the treatment may last for several hours. Follow these instructions along with Activity/Diet recommendations noted above: * Do NOT do anything where dizziness or clumsiness would be dangerous. * Rest quietly at home today, then you can be up and about tomorrow. * Have a responsible person stay with you the rest of today. * You may have had an I.V. today. If so, you may take the dressing off later today. Recommendations Call your doctor if: * Trouble breathing * Continuous vomiting for more than 24 hours * Temperature above 101 degrees * Severe abdominal pain or bloating * Pain not relieved by pain medicine ordered * There is increased drainage or redness from any incision * A large amount of rectal bleeding greater than 2-3 tablespoons. (If you had a polyp/s removed or have hemorrhoids, a small amount of blood - from the rectum is to be expected.) * You have any unanswered questions or concerns. IN THE EVENT OF A SERIOUS EMERGENCY, GO TO THE NEAREST EMERGENCY ROOM Your discharge instructions were prepared by provider Ye Starkey. Patient Instructions Signature Page Ronny Acosta Patient (or Guardian) Signature/Date: I have read and understand the instructions given to me by my caregivers. Caregiver/RN/Doctor Signature/Date: The above-named patient and/or guardian has received patient instructions on this date. + Original Patient Signature Page (only) stays with chart. Please make copy for patient.
[2017-02-10 11:05] VITALS: BP 110/56; PULSE 64; O2SAT 100
--- NOTE | 2017-02-10 11:41 | Anesthesiology Progress Note ---
Anesthesia Post Op Note Date & Time Feb 10, 2017 at 11:42 Vital Signs Pain Intensity: 0 Vital Signs Past 12 Hours Date Time Temp Pulse Resp B/P Pulse Ox O2 Delivery O2 Flow Rate FiO2 02/10/17 11:05 64 20 110/56 100 Room Air 02/10/17 10:47 66 16 94/45 100 Room Air 02/10/17 10:30 84 16 92/54 100 Room Air 02/10/17 09:01 36.7 68 20 126/65 100 Room Air Notes Mental Status: alert / awake / arousable, participated in evaluation Pt Amnestic to Procedure: Yes Nausea / Vomiting: adequately controlled Pain: adequately controlled Airway Patency, RR, SpO2: stable & adequate BP & HR: stable & adequate Hydration State: stable & adequate Anesthetic Complications: no major complications apparent
== END | disposition home or self-care (01) ==
LOC: C.GI 08:29
PROVIDERS: ATTEND Internal Medicine
DX: R10.84 Generalized abdominal pain (principal); K64.8 Other hemorrhoids

== ENCOUNTER → 2017-02-18 | Outpatient (CLI) | payer BC ==
[~2017-02-18] MED LIST changes: -LIDOCAINE HCL 2% 2 ML VIAL (20MG/ML) ONE; -MIDAZOLAM HCL 1 MG/ML 2ML VIAL ONE; -ONDANSETRON INJ 2 MG/ML 2 ML VIAL ONE; -PROPOFOL IV EMULSION 10 MG/ML 20 ML VIAL IV ONE; -SODIUM CHLORIDE 0.9% 500ML 500 ML IV ONE
--- NOTE | 2017-02-18 13:53 | DIAGNOSTIC IMAGING REPORT ---
NUCLEAR GASTRIC EMPTYING STUDY HISTORY: Pain. Nausea. R10.13 Epigastric [id number] COMPARISON: None. TECHNIQUE: Following the oral administration of 1.2 mCi of technetium 99m sulfur colloid in egg sandwich and 8 ounces of water, static abdominal images are obtained anteriorly and posteriorly at 0 minutes, 1 hour, 2 hour, and 4 hour time intervals. Gastric emptying was calculated utilizing the geometric mean method. FINDINGS: There is approximately 91 % activity remaining at the 1 hour time interval (normal is less than 90%), 61 % remaining at the 2 hour time interval (normal is less than 60%), and 6 % activity remaining at the 4 hour time interval (normal is less than 10%). IMPRESSION: Findings of slight gastric emptying delay Electronically signed by: Anthony Patrick M.D. 02/18/2017 1:51 PM Dictated Date/Time: 02/18/2017 1:51 PM
== END | disposition home or self-care (01) ==
LOC: C.NUCL 08:23
PROVIDERS: ATTEND Registered Nurse
DX: R10.13 Epigastric pain (principal); K30 Functional dyspepsia

== ENCOUNTER → 2017-07-13 | Outpatient (CLI) | payer BC ==
[~2017-07-13] MED LIST changes: +GADAVIST IV PRN; +GLUCAGON FOR INJ 1 MG VIAL ONE; +NURSING VERBAL MED ORDER ONE
--- NOTE | 2017-07-13 12:59 | DIAGNOSTIC IMAGING REPORT ---
ENTEROGRAPHY ABD/PELVIS COMBO CLINICAL HISTORY: 37 years-old Female presenting with EPIGASTRIC PAIN. TECHNIQUE: Multisequence, multiplanar MR imaging of the abdomen and pelvis was performed before and after the administration of intravenous contrast. IV contrast: 7 mL of Gadavist. COMPARISON: CT from 12/26/2016. FINDINGS: Localizer images: Unremarkable. Lung bases: Lung bases clear. No pericardial or pleural effusion. Liver: Normal morphology. No liver lesion. Patent hepatic vasculature. Biliary: No intrahepatic or extrahepatic biliary ductal dilatation. Normal gallbladder. Pancreas: Normal. Spleen: Normal. Adrenal glands: Normal. Kidneys and ureters: Normal. No hydronephrosis. Gastrointestinal tract: Overall small bowel is under distended with oral contrast, which limits evaluation. Minimal prominence of the terminal ileum without [place] evidence of bowel wall thickening. Apparent mild mucosal hyperenhancement, however, no perienteric inflammatory change is noted. Peritoneal cavity: No free fluid or intraperitoneal gas. Bladder: Normal. Pelvic organs: Uterus and ovaries normal. Vasculature: Aorta and IVC patent and normal in caliber. Lymph nodes: No enlarged lymph nodes in the abdomen or pelvis. Abdominal wall: Normal. Musculoskeletal: Normal. IMPRESSION: 1. No convincing evidence of bowel wall thickening within limitations of suboptimal opacification with oral contrast. Equivocal findings of inflammation of the terminal ileum. No convincing evidence of inflammatory bowel disease. Electronically signed by: Waqas Peralta M.D. 07/13/2017 12:57 PM Dictated Date/Time: 07/13/2017 12:42 PM
== END | disposition home or self-care (01) ==
LOC: C.MRI 09:39
PROVIDERS: ATTEND Internal Medicine Gastroenterology
DX: R10.13 Epigastric pain (principal)

== ENCOUNTER 2018-04-02 08:08 | Emergency (ER) | payer BC, OTHER ==
[~2018-04-02] VITALS: Ht 160 cm; Wt 66.7 kg
[~2018-04-02 08:08] MED LIST changes: -GADAVIST IV PRN; -GLUCAGON FOR INJ 1 MG VIAL ONE; -NURSING VERBAL MED ORDER ONE
[2018-04-02 08:14] VITALS: TEMP 36.8; Ht 160 cm; Wt 66.7 kg
[2018-04-02] MEDS ORDERED: ONDANSETRON INJ 2 MG/ML 2 ML VIAL IV STA (08:32)
[2018-04-02] MEDS ORDERED: SODIUM CHLORIDE 0.9% 1000ML 1,000 ML IV STA ×2 (08:32)
[2018-04-02] MEDS ORDERED: MoRPHine SULFATE 4 MG/ML 1 ML CARP\\VIAL IV STA ×2 (08:32→10:04)
[2018-04-02 08:45] LABS: BASO % 0.1 %; BASO ABS # 0.02 K/uL (0-0.2); EOS % 0.9 %; EOS ABS # 0.13 K/uL (0-0.5); HEMATOCRIT 42.2 % (37-47); HEMOGLOBIN 14.8 g/dL (12.0-16.0); IG# 0.04 K/uL (0.00-0.02); LYMPH % 7.1 %; LYMPH ABS # 1.02 K/uL (1.2-3.4); MEAN CORPUSCULAR HEMOGLOBIN 31.2 pg (25-34); MEAN CORPUSCULAR HGB CONC 35.1 g/dl (32-36); MEAN PLATELET VOLUME 10.8 fL (7.4-10.4); MONO % 6.5 %; MONO ABS # 0.94 K/uL (0.11-0.59); NEUT % 85.1 %; NEUT ABS # 12.28 K/uL (1.4-6.5); PLATELET COUNT 314 K/uL (130-400); RED CELL DISTRIBUTION WIDTH CV 12.8 % (11.5-14.5); RED CELL DISTRIBUTION WIDTH SD 41.2 fL (36.4-46.3); WHITE BLOOD COUNT 14.43 K/uL (4.8-10.8)
[2018-04-02 09:05] LABS: ALBUMIN 3.7 gm/dl (3.4-5.0); CALCIUM 8.8 mg/dl (8.5-10.1); CREATININE 0.88 mg/dl (0.60-1.20); POTASSIUM 3.8 mmol/L (3.5-5.1); TOTAL PROTEIN 7.7 gm/dl (6.4-8.2)
[2018-04-02] MEDS ORDERED: OPTIRAY 320 IV PRN (09:30)
--- NOTE | 2018-04-02 09:56 | DIAGNOSTIC IMAGING REPORT ---
ABD/PELVIS IV CONTRAST ONLY CLINICAL HISTORY: 37 years-old Female presenting with RIGHT ABD PAIN AND NAUSEA. TECHNIQUE: Multidetector CT of the abdomen and pelvis was performed after the administration of intravenous contrast. IV contrast: 92 mL of Optiray 320. A dose lowering technique was used consistent with the principles of ALARA (as low as reasonably achievable). COMPARISON: 12/26/2016. CT DOSE (mGy.cm): The estimated cumulative dose is 292.41 mGy.cm. FINDINGS: Co Teacher topogram: Unremarkable. Lung bases: Minimal basilar opacities, likely atelectasis. Normal heart size. No pericardial or pleural effusion. Liver: Normal morphology. No liver lesion. Patent hepatic vasculature. Biliary: No intrahepatic or extrahepatic biliary ductal dilatation. Normal gallbladder. Pancreas: Normal. Spleen: Normal. Adrenal glands: Normal. Kidneys and ureters: Normal. No hydronephrosis. Bladder: Normal. Pelvic organs: Normal. Bowel: Significant colonic wall thickening of the distal transverse colon (series 3 image 126). Proximal to this, there is mild mucosal hyperemia and fluid in the colon suggesting a diarrheal state. The appendix is not clearly visualized on the current exam. No bowel obstruction. Mild diffuse small bowel wall thickening and mucosal hyperemia. One loop of small bowel in the upper abdomen is significantly thick-walled (series 3 image 177) the series. This is an extended length of bowel measuring approximately 30 cm. No significant perienteric inflammatory change. Peritoneal cavity: No free fluid or intraperitoneal gas. Lymph nodes: No enlarged lymph nodes in the abdomen or pelvis. Vasculature: Aorta and IVC patent and normal in caliber. Abdominal wall: Bilateral breast implants noted with bilateral mastectomies. Musculoskeletal: Normal. IMPRESSION: 1. Evidence of significant small bowel wall thickening as well as limited wall thickening of the transverse colon. Findings most suggestive of an infectious enterocolitis. No significant perienteric or pericolonic inflammatory change. 2. No lymphadenopathy or evidence of metastatic disease in abdomen or pelvis. Electronically signed by: Waqas Peralta M.D. 04/02/2018 9:54 AM Dictated Date/Time: 04/02/2018 9:40 AM
[2018-04-02] MEDS ORDERED: ONDA4TAB10 SL (11:32)
[2018-04-02] MEDS ORDERED: PROM25TA9 PO (11:32)
--- NOTE | 2018-04-02 11:33 | EMERGENCY ROOM VISIT NOTE ---
History First contact with patient: 08:18 Chief Complaint: ABDOMINAL PAIN Stated Complaint: MAJOR STOMACH PAIN Nursing Triage Summary: Patient presents in wheelchair to room B03B with c/o severe lower abdominal pain and nausea History of Present Illness Patient is a 37-year-old white female with past medical history significant for breast cancer in remission, IBS with chronic constipation, and other unspecified stomach problems, who presents the emergency department for evaluation of lower right-sided abdominal pain that started acutely about 2 hours ago. Patient reports that she was feeling well was in her usual state of health yesterday. She ate and drank normally. She got up this morning and got ready for work, and while on the way to work, the pain steadily worsened to the point where she had to turn around and go home. She reports that she was very nauseous, but did not vomit. She did have a bowel movement this morning that was hard, but formed and states it was normal for her. There has been no diarrhea. She has not eaten anything today. She did not try taking any medications because she was afraid that she would vomit. She states that this pain is different from her prior episodes of abdominal pain which had been previously more epigastric in nature. The source of that pain was never clearly diagnosed, but states she and states that it has largely resolved. She denies any unusual food or water consumption recently. No sick contacts at home. She has never had any abdominal surgeries. She does report a history of ovarian cyst. Last menstrual period was 3 weeks ago. She presently rates her pain an 8/10. Review of Systems Review of systems as per HPI. All other systems reviewed were negative. 10 systems reviewed. Past Medical/Surgical History Medical Problems: (1) Abdominal pain (2) Breast cancer (3) Enteritis (4) Epigastric abdominal pain (5) Epigastric abdominal pain (6) Nausea (7) Nausea (8) Sprain of ankle (9) Stomach problems Surgical Problems: (1) H/O section (2) History of bilateral mastectomy (3) History of breast reconstruction (4) History of lymph node biopsy Electronic medical records are reviewed and summarized as above/below. See Problem List. Family History Cancer Diabetes mellitus Hypertension Kidney stones Lung disease Seizures Social History Smoking Status: Never Smoker Drug Use: none Marital Status: Housing Status: lives with family Occupation Status: employed Current/Historical Medications Scheduled Control Pills ( Control Pills), 1 TAB PO HS Scheduled PRN Ondasetron Odt (Zofran Odt), 4 MG SL Q4 PRN for Nausea or Vomiting Promethazine Hcl (Phenergan), 25 MG PO Q4H PRN for Nausea Physical Exam Vital Signs Date Time Temp Pulse Resp B/P (MAP) Pulse Ox O2 Delivery O2 Flow Rate FiO2 04/02/18 11:45 78 18 98/65 98 04/02/18 10:00 68 16 96/51 99 Room Air 04/02/18 08:14 36.8 91 18 106/68 100 Room Air Physical Exam CONSTITUTIONAL: Patient is an uncomfortable appearing 37-year-old female who is awake and alert and in moderate distress due to her stated complaint. EYES: Pupils equal, round, reactive to light and accommodation. EOMs intact without nystagmus. Sclera are anicteric. CARDIOVASCULAR: Regular rate and rhythm, with normal S1 and S2, no murmur or gallop or rub is heard. No carotid bruits auscultated. No JVD. Peripheral pulses easily palpable. RESPIRATORY: Breath sounds equal and clear to auscultation without wheezes, rales, or rhonchi heard. Full and equal chest expansion without accessory muscle use or retractions. ABDOMEN: Bowel sounds are present. Abdomen is soft, nondistended, nontender to percussion throughout. She is moderately tender to palpation in the suprapubic and right lower quadrant as well as slightly tender in the left upper quadrant, with voluntary guarding. INTEGUMENTARY: No lesions or rash, normal skin turgor. LYMPH: No lymphadenopathy. Medical Decision & Procedures ER Provider Diagnostic Interpretation: ABD/PELVIS IV CONTRAST ONLY CLINICAL HISTORY: 37 years-old Female presenting with RIGHT ABD PAIN AND NAUSEA. TECHNIQUE: Multidetector CT of the abdomen and pelvis was performed after the administration of intravenous contrast. IV contrast: 92 mL of Optiray 320. A dose lowering technique was used consistent with the principles of ALARA (as low as reasonably achievable). COMPARISON: 12/26/2016. CT DOSE (mGy.cm): The estimated cumulative dose is 292.41 mGy.cm. FINDINGS: Digital Engineer topogram: Unremarkable. Lung bases: Minimal basilar opacities, likely atelectasis. Normal heart size. No pericardial or pleural effusion. Liver: Normal morphology. No liver lesion. Patent hepatic vasculature. Biliary: No intrahepatic or extrahepatic biliary ductal dilatation. Normal gallbladder. Pancreas: Normal. Spleen: Normal. Adrenal glands: Normal. Kidneys and ureters: Normal. No hydronephrosis. Bladder: Normal. Pelvic organs: Normal. Bowel: Significant colonic wall thickening of the distal transverse colon (series 3 image 126). Proximal to this, there is mild mucosal hyperemia and fluid in the colon suggesting a diarrheal state. The appendix is not clearly visualized on the current exam. No bowel obstruction. Mild diffuse small bowel wall thickening and mucosal hyperemia. One loop of small bowel in the upper abdomen is significantly thick-walled (series 3 image 177) the series. This is an extended length of bowel measuring approximately 30 cm. No significant perienteric inflammatory change. Peritoneal cavity: No free fluid or intraperitoneal gas. Lymph nodes: No enlarged lymph nodes in the abdomen or pelvis. Vasculature: Aorta and IVC patent and normal in caliber. Abdominal wall: Bilateral breast implants noted with bilateral mastectomies. Musculoskeletal: Normal. IMPRESSION: 1. Evidence of significant small bowel wall thickening as well as limited wall thickening of the transverse colon. Findings most suggestive of an infectious enterocolitis. No significant perienteric or pericolonic inflammatory change. 2. No lymphadenopathy or evidence of metastatic disease in abdomen or pelvis. Laboratory Results 04/02/18 08:35 Red Blood Count 4.74, Mean Corpuscular Volume 89.0, Mean Corpuscular Hemoglobin 31.2, Mean Corpuscular Hemoglobin Concent 35.1, Mean Platelet Volume 10.8, Neutrophils (%) (Auto) 85.1, Lymphocytes (%) (Auto) 7.1, Monocytes (%) (Auto) 6.5, Eosinophils (%) (Auto) 0.9, Basophils (%) (Auto) 0.1, Neutrophils # (Auto) 12.28, Lymphocytes # (Auto) 1.02, Monocytes # (Auto) 0.94, Eosinophils # (Auto) 0.13, Basophils # (Auto) 0.02 04/02/18 08:35 Test 04/02/18 08:20 04/02/18 08:35 Urine Test NEG (NEG) White Blood Count 14.43 K/uL (4.8-10.8) Red Blood Count 4.74 M/uL (4.2-5.4) Hemoglobin 14.8 g/dL (12.0-16.0) Hematocrit 42.2 % (37-47) Mean Corpuscular Volume 89.0 fL (80-100) Mean Corpuscular Hemoglobin 31.2 pg (25-34) Mean Corpuscular Hemoglobin Concent 35.1 g/dl (32-36) Platelet Count 314 K/uL (130-400) Mean Platelet Volume 10.8 fL (7.4-10.4) Neutrophils (%) (Auto) 85.1 % Lymphocytes (%) (Auto) 7.1 % Monocytes (%) (Auto) 6.5 % Eosinophils (%) (Auto) 0.9 % Basophils (%) (Auto) 0.1 % Neutrophils # (Auto) 12.28 K/uL (1.4-6.5) Lymphocytes # (Auto) 1.02 K/uL (1.2-3.4) Monocytes # (Auto) 0.94 K/uL (0.11-0.59) Eosinophils # (Auto) 0.13 K/uL (0-0.5) Basophils # (Auto) 0.02 K/uL (0-0.2) RDW Standard Deviation 41.2 fL (36.4-46.3) RDW Coefficient of Variation 12.8 % (11.5-14.5) Immature Granulocyte % (Auto) 0.3 % Immature Granulocyte # (Auto) 0.04 K/uL (0.00-0.02) Anion Gap 6.0 mmol/L (3-11) Est Creatinine Clear Calc Drug Dose 78.7 ml/min Estimated GFR () 95.9 Estimated GFR (Non- 82.8 BUN/Creatinine Ratio 16.1 (10-20) Calcium Level 8.8 mg/dl (8.5-10.1) Total Bilirubin 0.4 mg/dl (0.2-1) Aspartate Amino Transf (AST/SGOT) 21 U/L (15-37) Alanine Aminotransferase (ALT/SGPT) 54 U/L (12-78) Alkaline Phosphatase 48 U/L (45-117) Total Protein 7.7 gm/dl (6.4-8.2) Albumin 3.7 gm/dl (3.4-5.0) Globulin 4.0 gm/dl (2.5-4.0) Albumin/Globulin Ratio 0.9 (0.9-2) Lipase 134 U/L (73-393) Medications Administered Medications (Trade) Dose Ordered Sig/Babatunde Route Start Time Stop Time Status Last Admin Dose Admin Sodium Chloride 1,000 ml @ 999 mls/hr Q1H1M STAT IV 04/02/18 08:32 04/02/18 09:34 DC 04/02/18 08:45 999 MLS/HR Sodium Chloride 1,000 ml @ 250 mls/hr Q4H STAT IV 04/02/18 08:32 04/02/18 12:31 DC 04/02/18 08:45 250 MLS/HR Ondansetron HCl (Zofran Inj) 4 mg NOW STAT IV 04/02/18 08:32 04/02/18 08:34 DC 04/02/18 08:45 4 MG Morphine Sulfate (MoRPHine SULFATE INJ) 4 mg NOW STAT IV 04/02/18 08:32 04/02/18 08:34 DC 04/02/18 08:46 4 MG Morphine Sulfate (MoRPHine SULFATE INJ) 2 mg NOW STAT IV 04/02/18 10:04 04/02/18 10:06 DC 04/02/18 10:30 2 MG ED Course The patient was seen and evaluated as above. Her old records were reviewed. IV lock was initiated and she was hydrated with normal saline solution. She received a total of 2 L while in the emergency department. She was medicated initially with morphine 4 mg and Zofran 4 mg IV. CBC with differential, CMP, lipase, urine dip and urine test were performed. Laboratory studies noted a white count of 14,400 with left shift and bandemia. H&H is normal. Electrolytes are without significant abnormality. Renal and liver functions are normal. Lipase is not elevated. Urine dip was clear, and urine test was negative. The patient was reassessed and reported good relief of her nausea and slight improvement in her pain. She declined any additional medication for pain at this time. Given her right lower abdominal pain, CT scan of the abdomen and pelvis with IV contrast was ordered. The patient did request something for pain when she returned from CT and as she was slightly hypotensive, she was given morphine [address] scan findings noted evidence of significant small bowel wall thickening as well as limited wall thickening of the transverse colon, suggestive of an infectious enterocolitis. There is no specific perienteric or pericolonic inflammatory change. No other acute findings were noted in the abdomen or the pelvis. All laboratory and diagnostic imaging studies were reviewed with attending physician, and discussed with the patient at length. Treatment options were discussed with her. At the present time she does not have any diarrheal symptoms although she was educated that this might develop. Possibilities included food borne illness, viral versus bacterial colitis were discussed with her. There are no stool samples to send for analysis at this time. With the fairly significant CT findings on the level of the patient's discomfort, I did discuss admission/observation with her versus a trial of home therapy, and she would like to go home. She was given ice chips in the emergency department which she tolerated. She has some narcotic pain medication at home which she can use, she declined any additional narcotic prescriptions. She was prescribed Zofran and Phenergan to use as needed for nausea she was educated on the worrisome signs or symptoms for which she should return to the emergency department including but not limited to worsening or uncontrolled pain, fevers or vomiting. The patient was discharged home with her spouse in good condition , rating her pain a 1/10 at discharge. Differential diagnoses entertained included UTI, pyelonephritis, renal colic, appendicitis, bowel obstruction, perforation, mass or malignancy, infectious versus inflammatory colitis/enteritis, ovarian cyst, ovarian torsion, , ectopic , among others. Medical Decision See emergency department course. [place] Drug Monitoring Program Search Results: patient reviewed within database, no issues identified Medication Reconcilliation Current Medication List: was personally reviewed by [place] Blood Pressure Screening Patient's blood pressure: Normal blood pressure Impression Primary Impression: Enterocolitis Departure Information Prescriptions Promethazine Hcl (Phenergan) 25 Mg Tab 25 MG PO Q4H Y for Nausea, #20 TAB Prov: Tabby Arriaga PA 04/02/18 Ondasetron Odt (ZOFRAN ODT) 4 Mg Tab 4 MG SL Q4 Y for Nausea or Vomiting, #20 TAB Prov: Tabby Arriaga PA 04/02/18 Referrals Waqas Ramirez M.D. (PCP) Patient Instructions My [facility] Additional Instructions DO NOT drive, drink alcohol, operate machinery, or perform dangerous activities today. You were given medications in the ER that can affect your ability to safely function or operate a vehicle. Ibuprofen(Motrin, Advil) may be used for fever or pain. Use 600mg every six hours as needed. Take with food. Avoid using more than 2400mg in a 24 hour period. Do not use 2400mg per day for more than three consecutive days without physician direction. Prolonged inappropriate use can lead to stomach upset or ulcers. This is available over the counter and typically comes in 200mg tablets. (AND/OR) Acetaminophen(Tylenol) may be used for fever or pain. Use 1000mg every eight hours as needed. Avoid using more than 3000mg in a 24 hour period. This is available over the counter. Zofran(odansetron) tablets 4mg: Take one and allow it to dissolve in your mouth every four hours as needed for nausea or vomiting. Phenergan(promethazine) tablets 25mg: Take one every six hours as needed for nausea. Avoid alcohol, operating machinery or dangerous equipment, working on ladders or roofs, DRIVING, or situations where being under the influence may be dangerous. Read all the package inserts or medication information paperwork provided. If you have any questions or concerns call your primary provider, pharmacist or the ER for assistance. Rest and drink plenty of fluids as tolerated. Slow sips of water or sports drinks are recommended instead of large amounts all at once. Continue current medications. Once your stomach is settled start with a clear liquid diet (jello, soup broth, etc.) and then advance as tolerated. You should avoid full, heavy meals for about 24 hrs from the time your symptoms resolved. Return to the ER immediately for worsening or persistent abdominal pain, vomiting, fevers, chest pains, difficulty breathing, black or bloody stools, worsening of your condition, or as needed. Return to the ER or follow up with your primary provider in 8-12 hours for a recheck of your current condition. Follow up with your primary physician in 1-2 days for a recheck of your current condition.
[2018-04-02 11:45] VITALS: BP 98/65; PULSE 78; O2SAT 98
== END 2018-04-02 11:50 | disposition home or self-care (01) ==
LOC: C.EDB 08:11
DX: K52.9 Noninfective gastroenteritis and colitis, unspecified (principal); K59.09 Other constipation; K58.9 Irritable bowel syndrome, unspecified; R11.0 Nausea; Z79.3 Long term (current) use of hormonal contraceptives; D72.829 Elevated white blood cell count, unspecified; R03.1 Nonspecific low blood-pressure reading

== ENCOUNTER 2022-10-06 10:45 | Inpatient (IN) ==
[2022-10-06] MEDS ORDERED: SODIUM CHLORIDE 0.9% 1000ML 1,000 ML IV STA (11:31)
--- NOTE | 2022-10-06 11:34 | Emergency Department Note ---
Impression & Plan Nausea, Decreased oral intake ED Provider Note HISTORY OF PRESENT ILLNESS: Patient is a 42-year-old female presenting with nausea and decreased oral intake. Patient reports she is feeling having significant oral intake over the last 4 days secondary to profound nausea. Reports anytime she eats or drinks anything, she feels so nauseous that she is unable to continue eating or d rinking. Denies any fevers. Denies any abdominal pain. Denies any change in bowel habits. Denies any recent travel. Denies any recent exposure to sick contacts. Patient has a history of breast cancer and finished a round of oral chemotherapy 3 months ago. Reports she had similar symptoms when she was on her oral chemotherapeutic agent. However, the symptoms in the last few days has started out of the blue. She reports she had previously been told that "borderline gastroparesis diagnosis." She denies any significant nausea outside of when she eats or drinks anything. ROS: Constitutional: No fever, chills, or weakness +decreased oral intake Skin: No rash or diaphoresis HENT: No headaches or congestion Eyes: No vision changes Cardio: No chest pain, palpitations or leg swelling Respiratory: No cough, wheezing or shortness of breath GI: No vomiting, diarrhea, constipation +nausea : No dysuria, polyuria MSK: No joint or back pain Neuro: No loss of sensation, confusion, focal deficits, numbness, tingling Psychiatric: No mood changes PHYSICAL EXAM: Constitutional: Patient appears in no acute distress. HENT: Head: Normocephalic and atraumatic. Eyes: EOMI, PERRL Mouth/Throat: Mucous membranes dry Neck: Trachea midline. Neck supple. Cardiovascular: RRR, No murmurs, rubs or gallops. Intact distal pulses. Pulmonary/Chest: No respiratory distress. Breath sounds clear and equal bilaterally. No wheezes or rales. Abdominal: BS +. Abdomen soft, no tenderness, rebound or guarding. Back: No midline spinal tenderness, no paraspinal tenderness, no CVA tenderness. Musculoskeletal: No edema, tenderness or deformity noted. Skin: Warm and dry. No rash, erythema, pallor or cyanosis Psychiatric: Appropriate mood and affect for situation. Neurological: Alert and keenly responsive. CN II-XII grossly intact, moving all extremities equally and fully. MDM: - Vitals signs stable. - Laboratory workup showed normal WBC; stable electrolytes - Patient with no abdominal pain or vomiting and having normal bowel movements. Also has benign abdominal exam. Do not feel CT abdomen/pelvis is warrented at this time, as obstruction less likely. - Given 2L NS in ER. - Discussed results with patient. Recommended discharge home with oral Zofran continued hydration at home. However, the patient expresses concern about her symptoms continuing and persistent nausea with any oral intake. She would like to be admitted for further work-up - Hospitalist consulted for admission. Requested KUB (ordered) - Patient admitted to hospitalist service for further evaluation and management. ASSESSMENT AND PLAN: Diagnosis: persistent nausea; decreased oral intake Plan: admit Past Med/Surg History Medical History Gastroesophageal reflux disease Hx of female infertility IBS (irritable bowel syndrome) Infiltrating ductal carcinoma of breast Biopsy 06/19/14 - Invasive ductal carcinoma, Triple negative-LEFT SIDE Returned in 2020 Kidney stones passed on own PCOS (polycystic ovarian syndrome) Port-A-Cath in place Short gut syndrome Surgical History Delivery by section x1 History of endoscopy History of lumpectomy of left breast History of surgery Reconstruction of breast exchange for implants on 01/15/15 History of surgery 06/18/2015 Reconstruction of nipple and revision of reconstructed breast History of vascular access device LEFT UPPER CHEST-POWER PORT Hx of bilateral mastectomy Hx of breast reconstruction Hx of colonoscopy Hx of oral surgery S/P breast reconstruction, bilateral 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 Father Family history unknown Sister Seizures Daughter No problems noted. 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 Beliefs That Will Affect Care: None marital status: Current Living Situation: Spouse current occupational status: employed current occupation: Works at [employer] How many Children do You have: 1 Feels Safe at Home: Yes caffeine: No during the past year weight has: remained stable Assistive Devices: Contacts and Glasses Allergies Allergies Allergy/AdvReac Type Severity Reaction Status Date / Time No Known Allergies Allergy Verified 08/11/22 11:21 Home Meds Home Medications Medication Instructions Recorded Confirmed pantoprazole 40 mg tablet,delayed 40 mg PO DAILY 09/09/21 10/06/22 release dicyclomine 20 mg tablet 20 mg PO QID PRN Spasms 04/15/22 10/06/22 psyllium husk (with sugar) 2 gram 2 wafer PO DAILY PRN Constipation 06/13/22 10/06/22 oral wafer (Metamucil Fiber Thin) norgestrel 0.3 mg-ethinyl 1 tab PO HS 10/06/22 10/06/22 estradiol 30 mcg tablet (Dre (28)) Results & Data (ED) Vital Signs Vital Signs - 24 hr 10/06/22 10:50 10/06/22 12:45 10/06/22 14:00 Temperature 36.4 C L Temperature Source Temporal Artery Scan Pulse Rate 83 Pulse Rate [Apical] 80 98 H Pulse Rhythm [Apical] Regular Pulse Strength [Apical] Normal Respiratory Rate 20 13 20 Respiratory Effort / Characteristics Non-Labored Spontaneous Non-Labored Respiratory Depth Normal Normal Respiratory Pattern Regular Regular Blood Pressure 129/68 Blood Pressure [Left Arm] 124/59 L 140/88 Blood Pressure Mean 88 Blood Pressure Mean [Left Arm] 80 105 Pulse Oximetry 98 100 98 Oxygen Delivery Method Room Air Room Air Room Air Sepsis Recent Fever Within 48 Hours No Sepsis New/Unexplained Change in Mental Status No Sepsis Action Taken by Nursing No Action Required Laboratory Data Result diagrams: 10/06/22 Unknown 10/06/22 Unknown Lab Results 10/06/22 10/06/22 10/06/22 Range/Units 12:55 Unknown Unknown WBC 5.84 (4.8-10.8) K/ul RBC 4.03 (3.93-5.22) M/uL Hgb 12.5 (12.0-16.0) g/dl Hct 36.4 (34.1-44.9) % MCV 90.3 (80.0-100.0) fL MCH 31.0 (25.0-34.0) pg MCHC 34.3 (32.0-36.0) g/dL RDW Std Deviation 39.7 (36.4-46.3) fL RDW Coeff of Arelis 11.9 (11.5-14.5) % Plt Count 269 (130-400) K/uL MPV 10.2 (9.4-12.3) fL Immature Gran % (Auto) 0.3 % Neut % (Auto) 64.6 % Lymph % (Auto) 22.8 % Hardeman % (Auto) 9.9 % Eos % (Auto) 2.1 % Baso % (Auto) 0.3 % Neut # (Auto) 3.77 (1.4-6.5) K/uL Lymph # (Auto) 1.33 (1.2-3.4) K/uL Hardeman # (Auto) 0.58 (0.24-0.82) K/uL Eos # (Auto) 0.12 (0-0.50) K/uL Baso # (Auto) 0.02 (0-0.2) K/uL Immature Gran # (Auto) 0.02 (0.00-0.02) K/uL Sodium 139 (136-145) mmol/L Potassium 3.5 (3.5-5.1) mmol/L Chloride 105 (98-107) mmol/L Carbon Dioxide 25 (21-32) mmol/L Anion Gap 9 (3-11) BUN 14 (6-23) mg/dl Creatinine 0.72 (0.6-1.2) mg/dl Est Cr Clr Drug Dosing 105.4 ml/min Est GFR ( Amer) 118.0 ml/min Est GFR (Non-Af Amer) 101.9 ml/min BUN/Creatinine Ratio 19.4 (10-20) Glucose 81 (70-99(Fasting)) mg/dl Lactate (0.4-2.0) mmol/L Calcium 8.7 (8.5-10.1) mg/dl Magnesium 1.9 (1.7-2.4) mg/dl Total Bilirubin 0.6 (0.2-1.0) mg/dl AST 12 L (13-39) U/L ALT 11 (7-52) U/L Alkaline Phosphatase 72 (34-104) U/L Total Protein 7.1 (6.0-8.3) gm/dl Albumin 4.0 (3.4-5.0) gm/dl Globulin 3.1 (2.5-4.0) gm/dl Albumin/Globulin Ratio 1.3 (0.9-2) Lipase 23 (11-82) U/L Urine Color Yellow Urine Appearance Cloudy A (Clear) Urine pH 5.5 (4.5-7.5) Ur Specific Sparkman 1.021 (1.000-1.030) Urine Protein 1+ H (Negative) Urine Glucose (UA) Negative (Negative) Urine Ketones 2+ H (Negative) Urine Blood 3+ H (Negative) Urine Nitrite Negative (Negative) Urine Bilirubin Negative (Negative) Urine Urobilinogen Negative (Negative) Ur Leukocyte Esterase Trace H (Negative) Urine WBC (Auto) 1-5 (0-5) /hpf Urine RBC (Auto) >30 H (0-4) /hpf U Hyaline Cast (Auto) 1-5 (0-5) /lpf U Epithel Cells (Auto) >30 H (0-5) /lpf Urine Bacteria (Auto) 1+ H (Negative) 10/06/22 Range/Units Unknown WBC (4.8-10.8) K/ul RBC (3.93-5.22) M/uL Hgb (12.0-16.0) g/dl Hct (34.1-44.9) % MCV (80.0-100.0) fL MCH (25.0-34.0) pg MCHC (32.0-36.0) g/dL RDW Std Deviation (36.4-46.3) fL RDW Coeff of Arelis (11.5-14.5) % Plt Count (130-400) K/uL MPV (9.4-12.3) fL Immature Gran % (Auto) % Neut % (Auto) % Lymph % (Auto) % Hardeman % (Auto) % Eos % (Auto) % Baso % (Auto) % Neut # (Auto) (1.4-6.5) K/uL Lymph # (Auto) (1.2-3.4) K/uL Hardeman # (Auto) (0.24-0.82) K/uL Eos # (Auto) (0-0.50) K/uL Baso # (Auto) (0-0.2) K/uL Immature Gran # (Auto) (0.00-0.02) K/uL Sodium (136-145) mmol/L Potassium (3.5-5.1) mmol/L Chloride (98-107) mmol/L Carbon Dioxide (21-32) mmol/L Anion Gap (3-11) BUN (6-23) mg/dl Creatinine (0.6-1.2) mg/dl Est Cr Clr Drug Dosing ml/min Est GFR ( Amer) ml/min Est GFR (Non-Af Amer) ml/min BUN/Creatinine Ratio (10-20) Glucose (70-99(Fasting)) mg/dl Lactate 0.3 L (0.4-2.0) mmol/L Calcium (8.5-10.1) mg/dl Magnesium (1.7-2.4) mg/dl Total Bilirubin (0.2-1.0) mg/dl AST (13-39) U/L ALT (7-52) U/L Alkaline Phosphatase (34-104) U/L Total Protein (6.0-8.3) gm/dl Albumin (3.4-5.0) gm/dl Globulin (2.5-4.0) gm/dl Albumin/Globulin Ratio (0.9-2) Lipase (11-82) U/L Urine Color Urine Appearance (Clear) Urine pH (4.5-7.5) Ur Specific Sparkman (1.000-1.030) Urine Protein (Negative) Urine Glucose (UA) (Negative) Urine Ketones (Negative) Urine Blood (Negative) Urine Nitrite (Negative) Urine Bilirubin (Negative) Urine Urobilinogen (Negative) Ur Leukocyte Esterase (Negative) Urine WBC (Auto) (0-5) /hpf Urine RBC (Auto) (0-4) /hpf U Hyaline Cast (Auto) (0-5) /lpf U Epithel Cells (Auto) (0-5) /lpf Urine Bacteria (Auto) (Negative) Administered Medications Discontinued Medications Sodium Chloride (Nss 1000ml) 1,000 mls @ 999 mls/hr IV .Q1H1M STA Stop: 10/06/22 12:31 Last Infusion: 10/06/22 12:48 Dose: 0 mls/hr Documented By: Admin: 10/06/22 11:40 Dose: 999 mls/hr Documented By: BRAXTON Sodium Chloride (Nss 1000ml) 1,000 mls @ 999 mls/hr IV .Q1H1M ONE Stop: 10/06/22 13:41 Last Infusion: 10/06/22 14:00 Dose: 0 mls/hr Documented By: Admin: 10/06/22 12:53 Dose: 999 mls/hr Documented By: HEIKE Discharge Plan Visit Data Chief Complaint: Nausea Stated Complaint: NAUSEA, CANT EAT OR DRINK, LIGHT HEADED ED Provider: Rosanna Romero Discharge Problem: Nausea, Decreased oral intake Patient Disposition: Admitted As Inpatient Forms Stand Alone Forms: [facility] Prescriptions Prescriptions: No Action Metamucil Fiber Thin 2 gram wafer 2 wafer PO DAILY PRN (Reason: Constipation) pantoprazole 40 mg tablet,delayed release (DR/EC) 40 mg PO DAILY Cryselle (28) 0.3-30 mg-mcg tablet 1 tab PO HS dicyclomine 20 mg tablet 20 mg PO QID PRN (Reason: Spasms) Referrals Referrals: Nancie Brown [Primary Care Provider] -
[2022-10-06 12:01] LABS: Basophils # (auto) 0.02 K/uL (0-0.2); Basophils % (auto) 0.3 %; Eosinophils # (auto) 0.12 K/uL (0-0.50); Eosinophils % (auto) 2.1 %; Hematocrit (blood only) 36.4 % (34.1-44.9); Hemoglobin 12.5 g/dl (12.0-16.0); Immature Granulocytes # (auto) 0.02 K/uL (0.00-0.02); Immature Granulocytes % (auto) 0.3 %; Lymphocytes # (auto) 1.33 K/uL (1.2-3.4); Lymphocytes % (auto) 22.8 %; Mean Corpuscular Hgb Conc 34.3 g/dL (32.0-36.0); Mean Corpuscular Volume 90.3 fL (80.0-100.0); Mean Platelet Volume 10.2 fL (9.4-12.3); Monocytes # (auto) 0.58 K/uL (0.24-0.82); Monocytes % (auto) 9.9 %; Neutrophils # (auto) 3.77 K/uL (1.4-6.5); Neutrophils % (auto) 64.6 %; Platelet Count 269 K/uL (130-400); RDW Coefficient of Variation 11.9 % (11.5-14.5); RDW Standard Deviation 39.7 fL (36.4-46.3); Red Blood Count 4.03 M/uL (3.93-5.22); White Blood Count 5.84 K/ul (4.8-10.8)
[2022-10-06 12:23] LABS: Albumin Globulin Ratio 1.3 (0.9-2); BUN Creatinine Ratio 19.4 (10-20); Bilirubin,Total 0.6 mg/dl (0.2-1.0); Calcium 8.7 mg/dl (8.5-10.1); Creatinine Clr Calc Pharmacy 105.4 ml/min; Est GFR (Non-African American) 101.9 ml/min; Globulin 3.1 gm/dl (2.5-4.0); Magnesium 1.9 mg/dl (1.7-2.4); Potassium 3.5 mmol/L (3.5-5.1); Total Protein 7.1 gm/dl (6.0-8.3)
[2022-10-06] MEDS ORDERED: SODIUM CHLORIDE 0.9% 1000ML 1,000 ML IV ONE (12:41)
[2022-10-06 13:15] LABS: Appearance Urine Cloudy (Clear); Bacteria Urine Automated 1+ (Negative); Bilirubin Urine Negative (Negative); Blood Urine 3+ (Negative); Color Urine Yellow; Epithelial Cell Urine Auto >30 /lpf (0-5); Glucose Urine UA Negative (Negative); Ketones Urine 2+ (Negative); Leukocyte Esterase Urine Trace (Negative); Nitrite Urine Negative (Negative); Protein Urine 1+ (Negative); RBC Urine Automated >30 /hpf (0-4); Specific Gravity Urine 1.021 (1.000-1.030); Urobilinogen Urine Negative (Negative); pH Urine 5.5 (4.5-7.5)
--- NOTE | 2022-10-06 17:07 | XRay Report ---
KUB HISTORY: Acute nausea and vomiting with generalized abdominal pain nausea COMPARISON: CT abdomen and pelvis 04/15/2022. FINDINGS: Nonobstructive bowel gas pattern. Partially imaged catheter projects over the right heart b order. The heart appears enlarged. Surgical clips of the left breast. No renal calculi. No ureteral calculi. No pneumoperitoneum or pneumatosis. No fracture. IMPRESSION: Nonobstructive bowel gas pattern. ACT 112: Negative or not required by law. The above report was generated using voice recognition software. It may contain grammatical, syntax o r spelling errors. Electronically signed by: Guanako Arzola M.D. 10/06/2022 5:06 PM
--- NOTE | 2022-10-06 17:09 | History & Physical Report ---
Date of Service October 06, 2022 History of Present Illness Chief Complaint: nausea Primary Care Provider: Nancie S. Kevin Pt is a 42 yo female with PMH of IBS, GERD, kidney stones, PCOS, breast cx in current tx (last tx was _) presenting to the hospital with symptoms of uncontrollable nausea and the inability to keep anything down. Allergies Allergy/AdvReac Type Severity Reaction Status Date / Time No Known Allergies Allergy Verified 08/11/22 11:21 Home Medications Medication Instructions Recorded Confirmed Type pantoprazole 40 mg tablet,delayed 40 mg PO DAILY 09/09/21 10/06/22 History release dicyclomine 20 mg tablet 20 mg PO QID PRN Spasms 04/15/22 10/06/22 History psyllium husk (with sugar) 2 gram 2 wafer PO DAILY PRN Constipation 06/13/22 10/06/22 History oral wafer (Metamucil Fiber Thin) norgestrel 0.3 mg-ethinyl 1 tab PO HS 10/06/22 10/06/22 History estradiol 30 mcg tablet (Dre (28)) Past Med/Surg History Medical History Gastroesophageal reflux disease Hx of female infertility IBS (irritable bowel syndrome) Infiltrating ductal carcinoma of breast Biopsy 06/19/14 - Invasive ductal carcinoma, Triple negative-LEFT SIDE Returned in 2020 Kidney stones passed on own PCOS (polycystic ovarian syndrome) Port-A-Cath in place Short gut syndrome Surgical History Delivery by section x1 History of endoscopy History of lumpectomy of left breast History of surgery Reconstruction of breast exchange for implants on 01/15/15 History of surgery 06/18/2015 Reconstruction of nipple and revision of reconstructed breast History of vascular access device LEFT UPPER CHEST-POWER PORT Hx of bilateral mastectomy Hx of breast reconstruction Hx of colonoscopy Hx of oral surgery S/P breast reconstruction, bilateral 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 Father Family history unknown Sister Seizures Daughter No problems noted. 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 Eyes: PERRLA. Conjunctivae normal. ENMT: TM normal. Nonerythematous oropharynx with no lesions. Respiratory: CTA bilaterally. Non labored breathing. No rhonchi, wheezing, or crackles. Cardiovascular: RRR. No murmurs noted. No LE edema. Gastrointestinal (Abdomen): Nontender, +BS. No masses noted. Skin: No rashes or skin lesions noted. Neurologic: Sensation grossly intact. No FND appreciated. Psychiatric: Speech of normal pace and content. Mood and affect congruent. Results & Data Results & Data ([facility]) Vital Signs (Past 12 Hours) Vital Signs Temp Pulse Pulse Resp BP BP Pulse Ox 10/06/22 16:00 71 20 127/66 99 10/06/22 14:00 98 H 20 140/88 98 10/06/22 12:45 80 13 124/59 L 100 10/06/22 10:50 36.4 C L 83 20 129/68 98 O2 Del Method 10/06/22 16:00 Room Air 10/06/22 14:00 Room Air 10/06/22 12:45 Room Air 10/06/22 10:50 Room Air
--- NOTE | 2022-10-06 18:39 | History & Physical Report ---
Date of Service October 06, 2022 Assessment & Plan (1) Nausea: Plan: Differential fairly broad, but it seems like most likely constipation versus gallbladder disease versus less likely but possible GI mucosal such as peptic ulcer disease. With normal transaminases, and with her time course of feeling better since chemotherapy until a few days ago, I doubt any type of a late effect of chemotherapy, but certainly will continue to follow closely in that regard. -Bowel regimenwe discussed, she does seem to run very constipated, notes that she does not believe she would be able to handle the fluid volume of a reasonable dose of MiraLAX. Discussed other optionswe will use Mylanta 30 mL 4 times daily scheduled, as well as lactulose 40 g now and then 20 g 4 times daily scheduled, can escalate if needed -Right upper quadrant ultrasound and repeat LFTs in the morning -Serial exams, twice daily Pepcid and Protonix, consider EGD if remainder of work-up negative/if gallbladder work-up is negative and her symptoms do not improve with significant bowel movement -Consider CT abdomen/pelvis if differentials do not cruz out/symptoms do not improve (2) Infiltrating ductal carcinoma of breast: Plan: Appears to be in remissiondoubt this directly relates, but certainly if her symptoms do not improve, this would be the main reason for CT abdomen/pelvis (3) DVT prophylaxis: Plan: Ambulation (4) Gastroesophageal reflux disease: Plan: Escalating acid suppression for now (5) [facility]charge planning issues: [facility] she comes from home on admission, anticipate her being able to go home on discharge History of Present Illness Chief Complaint: Intractable nausea Primary Care Provider: Nancie Brown Intractable nausea started fairly abruptly on prior to that she was feeling pretty good. Chemotherapy finished about 2 months agoand while she was not back to feeling great, she had noted progressive improvements in how she was feeling and had been eating and drinking pretty normally. Notes that she does run chronically constipatedtaking 300 mg of Colace a day she will have a bowel movement every 2 to 3 days, about a week leading up to her current symptoms she had no bowel movements, although she did have 1 yesterday. No real painshe does note occasional fleeting abdominal pain and when it happens its more epigastric than anywhere but not really any significant pain. She has not re ally been able to eat or drink anything meaningful in the last week and is concerned about that/understandably concerned about going home before feeling better. No fevers chills or sweats. No other symptoms. Notes that she is cancer free to the best of her knowledge, but is taking caution given that she has had a recurrence before Allergies Allergy/AdvReac Type Severity Reaction Status Date / Time No Known Allergies Allergy Verified 08/11/22 11:21 Home Medications Medication Instructions Recorded Confirmed Type pantoprazole 40 mg tablet,delayed 40 mg PO DAILY 09/09/21 10/06/22 History release dicyclomine 20 mg tablet 20 mg PO QID PRN Spasms 04/15/22 10/06/22 History psyllium husk (with sugar) 2 gram 2 wafer PO DAILY PRN Constipation 06/13/22 10/06/22 History oral wafer (Metamucil Fiber Thin) norgestrel 0.3 mg-ethinyl 1 tab PO HS 10/06/22 10/06/22 History estradiol 30 mcg tablet (Dre (28)) Past Med/Surg History Medical History (Updated 10/06/22 @ 18:37 by Giovanny Chavez DO) Gastroesophageal reflux disease Hx of female infertility IBS (irritable bowel syndrome) Infiltrating ductal carcinoma of breast Biopsy 06/19/14 - Invasive ductal carcinoma, Triple negative-LEFT SIDE Returned in 2020 Kidney stones passed on own PCOS (polycystic ovarian syndrome) Port-A-Cath in place Short gut syndrome Surgical History Delivery by section x1 History of endoscopy History of lumpectomy of left breast History of surgery Reconstruction of breast exchange for implants on 01/15/15 History of surgery 06/18/2015 Reconstruction of nipple and revision of reconstructed breast History of vascular access device LEFT UPPER CHEST-POWER PORT Hx of bilateral mastectomy Hx of breast reconstruction Hx of colonoscopy Hx of oral surgery S/P breast reconstruction, bilateral 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 Father Family history unknown Sister Seizures Daughter No problems noted. 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 HEENT normocephalic atraumatic mucous membranes moist. Cardio is regular without rubs murmurs or gallops. Lungs are clear to auscultation bilaterally no rales rhonchi or wheezes with good effort. Abdomen is soft mildly distended she has mild epigastric tenderness fairly significant right upper quadrant tenderness with positive Velasco sign that actually brings it here to her eyes the remainder of her abdomen is soft nontender nondistended no guarding rebound or rigidity no masses organomegaly. Extremities without sinus clubbing or edema, no calf tenderness. Skin shows no rashes no pallor or icterus. Neuro shows cranial nerves II through XII grossly intact gross motor and sensory intact. Mental status shows good recent and remote recall normal mood and affect good judgment and insight. Musculoskeletal shows no gross lesions of significance, she has no anterior abdominal wall trigger points, she does have mild right-sided lower paraspinal hypertonicity but none periscapular Results & Data Results & Data ([facility]) Vital Signs (Past 12 Hours) Vital Signs Temp Pulse Pulse Resp BP BP Pulse Ox 10/06/22 16:00 71 20 127/66 99 10/06/22 14:00 98 H 20 140/88 98 10/06/22 12:45 80 13 124/59 L 100 10/06/22 10:50 97.5 F L 83 20 129/68 98 O2 Del Method 10/06/22 16:00 Room Air 10/06/22 14:00 Room Air 10/06/22 12:45 Room Air 10/06/22 10:50 Room Air PG Care Time/CCT Total # of Minutes Spent Total Time Spent with Patient: Total time spent is greater than 50% in coordination of care (as documented) at patient's floor/unit and/or counseling patient: Coding Level of Care Code 14376 Initial Inpt Care Lvl 3 Diagnoses Nausea R11.0 Infiltrating ductal carcinoma of breast C50.919 Laterality: unspecified laterality DVT prophylaxis Z29.9 Gastroesophageal reflux disease K21.9 Discharge planning issues Z02.9 (1) Infiltrating ductal carcinoma of breast Laterality: unspecified laterality Qualified Code(s): C50.919 - Malignant neoplasm of unspecified site of unspecified female breast
[2022-10-06] MEDS ORDERED: HEPARIN 100 UNIT/ML 5ML FLUSH ONE (18:46)
--- NOTE | 2022-10-06 20:07 | Ultrasound Report ---
US liver HISTORY: 42 years-old Female RUQ pain, (+) murphys acute right upper quadrant abdominal pain COMPARISON: CT 04/15/2022 TECHNIQUE: Multiple real-time sonographic images of the abdominal right upper quadrant were obtained assessing grayscale appearance and color flow FINDINGS: The visualized pancreas is unremarkable. The liver measures up to 19.1 cm in length. No hepatic mass identified. Unremarkable gallbladder. No cholelithiasis or gallbladder wall thickening identified. Mi ld gallbladder distention. Normal common bile duct, 5 mm. Negative sonographic Velasco's sign. The imaged right kidney is unremarkable without hydronephrosis. IMPRESSION: Unremarkable exam. ACT 112: Negative or not required by law. The above report was generated using voice recognition software. It may contain grammatical, syntax o r spelling errors. Electronically signed by: Guanako Arzola M.D. 10/06/2022 7:57 PM
[2022-10-06] MEDS ORDERED: POLYETHYLENE (MIRALAX) 17 GM PACK PO PRN (21:11)
[2022-10-06] MEDS ORDERED: LACTULOSE SYRUP 20 GM/30 ML UDC PO ONE (21:11)
[2022-10-06] MEDS: ONDANSETRON INJ 2 MG/ML 2 ML VIAL IV PRN (22:00)
[2022-10-06] MEDS: LACTATED RINGER'S 1,000 ML IV SCH (22:00)
[2022-10-06] MEDS ORDERED: ACETAMINOPHEN 500 MG TAB PO PRN (22:06)
[2022-10-06] MEDS: PANTOprazole 40 MG TAB PO SCH (22:19)
[2022-10-06] MEDS: FAMOTIDINE 20 MG TAB PO SCH (22:19)
[2022-10-06] MEDS: LACTULOSE SYRUP 20 GM/30 ML UDC PO SCH (22:20)
[2022-10-06] MEDS: ALUMINUM/MAGNESIUM/SIMETH (MAALOX MAX) 30 ML UDC PO SCH (22:24)
[2022-10-07] MEDS ORDERED: HEPARIN 100 UNIT/ML 5ML FLUSH FLUSH PRN (01:43)
[2022-10-07] MEDS: LACTATED RINGER'S 1,000 ML IV SCH ×3 (06:13→22:32)
--- NOTE | 2022-10-07 07:53 | Hospitalist Progress Note ---
Date of Service October 07, 2022 Assessment & Plan (1) Nausea: Plan: Differential fairly broad, but it seems like most likely constipation versus gallbladder disease versus less likely but possible GI mucosal such as peptic ulcer disease. With normal transaminases, and with her time course of feeling better since chemotherapy until a few days ago, I doubt any type of a late effect of chemotherapy, but certainly will continue to follow closely in that regard. -Bowel regimenwe discussed, she does seem to run very constipated, notes that she does not believe she would be able to handle the fluid volume of a reasonable dose of MiraLAX. Cont. Mylanta 30 mL 4 times daily scheduled, as well as lactulose 40g now and then 20g 4 times daily scheduled, can escalate if needed. Since difficult to keep down PO meds, gave a fleet enema. -Right upper quadrant ultrasound unremarkable. LFTs wnl. -Serial exams, twice daily Pepcid and Protonix. -EGD a few months ago normal per patient. Recent chest and abd/pelvis CT showed no concern for malignancy and were generally unremarkable. (2) Infiltrating ductal carcinoma of breast: Plan: Appears to be in remission (3) DVT prophylaxis: Plan: Ambulation (4) Gastroesophageal reflux disease: Plan: Cont. escalated acid suppression for now (5) [facility] issues: [facility] on [facility], anticipate her being able to go home on discharge Plan DVT ppx: SCDs FEN/GI: regular, LRs 125ml/hr Code Status: full Dispo: med surg Admission and Anticipated Discharge Date Admission Date: October 06, 2022 Supervising Physician Co-Signing Physician Notes I personally examined the patient and verified all matos points of history and exam, discussed case, and agree with decision making with Dr Driver. Feeling about the same. Has had a degree of watery bowel movement, but not a whole lot else. Still not able to eat. Vitals noted, in general she is awake and alert pleasant no distress. HEENT normocephalic atraumatic mucous membranes moist. Breathing unlabored no accessory muscle use good effort. Skin shows no rashes no pallor or icterus. Neuro without focal deficits. Abdomen is soft mildly distended she is now fairly minimal right upper quadrant tenderness and no Velasco sign but she is now fairly exquisite epigastric tendernessbut again without guarding rebound or rigidity. The rest of her abdomen is mild but diffusely tender without guarding rebound or rigidity. Intractable nauseastill most suspicious of constipation given her bowel habits pattern, and the worsening recently. Further, with resident physician being able to review more in depth given the ability to access her [facility] chart, she had CT not too long ago at [facility] that did not show any concerning intra- abdominal process. Unfortunately we are not able to open the actual images to review stool burden.. Certainly differential such as peptic ulcer disease and biliary disease are still on the differential, but with her changing exam (yesterday was exquisite right upper quadrant tenderness, today its exquisite epigastric) and with her reassuring biliary work-up with labs/ultrasoundstill most suspicious that constipation is a problem. Would like to see how she feels/how she is able to eat after more adequate bowel movements, but she notes whenever I see her that she was not able to take more lactulose or Mylanta due to nausea. We discussed thisand discussed an enema, she agrees to proceed, but later declines. If we had adequate clearance of her bowels and persistent nauseathen would want to work-up further with possible EGD versus HIDA scan. In discussion with nursing, she is skeptical of our working diagnosis and would like a second opinion from [facility] that I am certainly happy to ask for their opinion on things as well. Consult entered. Subjective Seen at bedside this morning. Symptoms the same as last night despite current tx regimen. Still very nauseas and has barely eaten. Did have a liquidy BM this morning. Unsure if able to keep down oral meds. Denies chest pain, sob, headache, dysuria. +abd pain (mostly epigastric). Less RUQ pain. Review of Systems Review of Systems: All systems reviewed & are unremarkable except as noted in HPI & below Physical Exam Physical Exam: Constitutional: in no acute distress, pleasant and normal affect. Vitals as above. HEENT: No scleral injection or discharge. Moist mucous membranes. Neck: Supple without lymphadenopathy or thyromegaly. Trachea midline. Lungs: CTAB. No rales/rhonchi/wheeze. Cardiac: RRR.No murmurs. Abdomen: Bowel sounds present. Soft. Mildly distended. Moderate midepigastric tenderness. Less RUQ tenderness, neg murphys sign. Otherwise no guarding or hepatosplenomegaly. MSK: No cyanosis or clubbing. No gross lesions of significance, she has no anterior abdominal wall trigger points, she does have mild right-sided lower paraspinal hypertonicity but none periscapular Skin: No rashes, warm, dry. No pallor. Neurologic: Grossly intact cranial nerves Psych: AOx3 Results & Data Results & Data ([facility]) Vital Signs (Past 12 Hours) Vital Signs Temp Pulse Pulse Resp BP BP Pulse Ox 10/07/22 07:07 36.6 C 80 18 118/77 94 10/06/22 20:25 10/06/22 20:25 36.9 C 90 16 135/78 99 10/06/22 20:19 O2 Del Method 10/07/22 07:07 Room Air 10/06/22 20:25 Room Air 10/06/22 20:25 Room Air 10/06/22 20:19 Room Air Laboratory Results 10/07/22 10/07/22 Range/Units 07:28 07:28 WBC 4.40 L (4.8-10.8) K/ul RBC 3.89 L (3.93-5.22) M/uL Hgb 12.1 (12.0-16.0) g/dl Hct 35.6 (34.1-44.9) % MCV 91.5 (80.0-100.0) fL MCH 31.1 (25.0-34.0) pg MCHC 34.0 (32.0-36.0) g/dL RDW Std Deviation 40.5 (36.4-46.3) fL RDW Coeff of Arelis 12.1 (11.5-14.5) % Plt Count 244 (130-400) K/uL MPV 10.0 (9.4-12.3) fL Immature Gran % (Auto) 0.2 % Neut % (Auto) 61.2 % Lymph % (Auto) 23.2 % Saunders % (Auto) 11.1 % Eos % (Auto) 3.6 % Baso % (Auto) 0.7 % Neut # (Auto) 2.69 (1.4-6.5) K/uL Lymph # (Auto) 1.02 L (1.2-3.4) K/uL Saunders # (Auto) 0.49 (0.24-0.82) K/uL Eos # (Auto) 0.16 (0-0.50) K/uL Baso # (Auto) 0.03 (0-0.2) K/uL Immature Gran # (Auto) 0.01 (0.00-0.02) K/uL Sodium 138 (136-145) mmol/L Potassium 3.6 (3.5-5.1) mmol/L Chloride 105 (98-107) mmol/L Carbon Dioxide 25 (21-32) mmol/L Anion Gap 8 (3-11) BUN 7 (6-23) mg/dl Creatinine 0.69 (0.6-1.2) mg/dl Est Cr Clr Drug Dosing 109.0 ml/min Est GFR ( Amer) 122.7 ml/min Est GFR (Non-Af Amer) 105.9 ml/min BUN/Creatinine Ratio 10.1 (10-20) Glucose 70 (70-99(Fasting)) mg/dl Calcium 8.6 (8.5-10.1) mg/dl Total Bilirubin 0.6 (0.2-1.0) mg/dl AST 11 L (13-39) U/L ALT 10 (7-52) U/L Alkaline Phosphatase 65 (34-104) U/L Total Protein 6.5 (6.0-8.3) gm/dl Albumin 3.7 (3.4-5.0) gm/dl Globulin 2.8 (2.5-4.0) gm/dl Albumin/Globulin Ratio 1.3 (0.9-2) Resident Activity Tracking Resident Involvement: Resident Care Provided Care Provided: [facility] (1) Infiltrating ductal carcinoma of breast Laterality: unspecified laterality Qualified Code(s): C50.919 - Malignant neoplasm of unspecified site of unspecified female breast
[2022-10-07 07:54] LABS: Basophils # (auto) 0.03 K/uL (0-0.2); Basophils % (auto) 0.7 %; Eosinophils # (auto) 0.16 K/uL (0-0.50); Eosinophils % (auto) 3.6 %; Hematocrit (blood only) 35.6 % (34.1-44.9); Hemoglobin 12.1 g/dl (12.0-16.0); Immature Granulocytes # (auto) 0.01 K/uL (0.00-0.02); Immature Granulocytes % (auto) 0.2 %; Lymphocytes # (auto) 1.02 K/uL (1.2-3.4); Lymphocytes % (auto) 23.2 %; Mean Corpuscular Hemoglobin 31.1 pg (25.0-34.0); Mean Corpuscular Volume 91.5 fL (80.0-100.0); Monocytes # (auto) 0.49 K/uL (0.24-0.82); Monocytes % (auto) 11.1 %; Neutrophils # (auto) 2.69 K/uL (1.4-6.5); Neutrophils % (auto) 61.2 %; Platelet Count 244 K/uL (130-400); RDW Coefficient of Variation 12.1 % (11.5-14.5); RDW Standard Deviation 40.5 fL (36.4-46.3); Red Blood Count 3.89 M/uL (3.93-5.22)
[2022-10-07 08:24] LABS: Albumin Globulin Ratio 1.3 (0.9-2); Albumin Level 3.7 gm/dl (3.4-5.0); BUN Creatinine Ratio 10.1 (10-20); Bilirubin,Total 0.6 mg/dl (0.2-1.0); Calcium 8.6 mg/dl (8.5-10.1); Est GFR (African American) 122.7 ml/min; Est GFR (Non-African American) 105.9 ml/min; Globulin 2.8 gm/dl (2.5-4.0); Potassium 3.6 mmol/L (3.5-5.1); Total Protein 6.5 gm/dl (6.0-8.3)
[2022-10-07] MEDS: ONDANSETRON INJ 2 MG/ML 2 ML VIAL IV PRN (08:56)
[2022-10-07] MEDS: FAMOTIDINE 20 MG TAB PO SCH ×2 (09:00→20:01)
[2022-10-07] MEDS: PANTOprazole 40 MG TAB PO SCH ×2 (09:00→20:01)
[2022-10-07] MEDS: LACTULOSE SYRUP 20 GM/30 ML UDC PO SCH ×4 (09:00→20:01)
[2022-10-07] MEDS: ALUMINUM/MAGNESIUM/SIMETH (MAALOX MAX) 30 ML UDC PO SCH ×4 (09:00→20:01)
[2022-10-07] MEDS ORDERED: PROMETHAZINE HCL 12.5 MG in SODIUM CHLORIDE 0.9% 50 ML IV PRN (10:34)
[2022-10-07] MEDS ORDERED: SOD PHOSPHATE/SOD BIPHOSPHATE ENEMA 132 ML BTL PR STA (12:53)
[2022-10-07 14:56] VITALS: O2SAT 97
--- NOTE | 2022-10-07 18:47 | Billing Data ---
Date of Service October 07, 2022 Coding Level of Care Code 92184 Subseq Hosp Care Lvl 3
[2022-10-08] MEDS: LACTATED RINGER'S 1,000 ML IV SCH (06:06)
--- NOTE | 2022-10-08 07:08 | Hospitalist Progress Note ---
Date of Service October 08, 2022 Assessment & Plan (1) Nausea: Plan: Differential fairly broad, but it seems like most likely constipation versus gallbladder disease versus less likely but possible GI mucosal such as peptic ulcer disease. With normal transaminases, and with her time course of feeling better since chemotherapy until a few days ago, I doubt any type of a late effect of chemotherapy, but certainly will continue to follow closely in that regard. -Bowel regimenwe discussed, she does seem to run very constipated, notes that she does not believe she would be able to handle the fluid volume of a reasonable dose of MiraLAX. Cont. Mylanta 30 mL 4 times daily scheduled, as well as lactulose 40g now and then 20g 4 times daily scheduled, can escalate if needed. Since difficult to keep down PO meds, gave a fleet enema. -RUQ ultrasound unremarkable. LFTs wnl. -KUB: nonobstructive bowel gas pattern -Serial exams, twice daily Pepcid and Protonix. -EGD a few months ago normal per patient. Recent chest and abd/pelvis CT showed no concern for malignancy and were generally unremarkable. (2) Infiltrating ductal carcinoma of breast: Plan: Appears to be in remission (3) DVT prophylaxis: Plan: Ambulation (4) Gastroesophageal reflux disease: Plan: Cont. escalated acid suppression for now (5) Discharge planning issues: Plan: [facility], she comes from home on admission, anticipate her being able to go home on discharge Plan DVT ppx: SCDs FEN/GI: regular, LRs 125ml/hr Code Status: full Dispo: med surg Admission and Anticipated Discharge Date Admission Date: October 06, 2022 Subjective Seen at bedside this morning. Symptoms the same as last night despite current tx regimen. Still very nauseas and has barely eaten. Did have a liquidy BM this morning. Unsure if able to keep down oral meds. Denies chest pain, sob, headache, dysuria. +abd pain (mostly epigastric). Less RUQ pain. Review of Systems Review of Systems: All systems reviewed & are unremarkable except as noted in HPI & below Physical Exam Physical Exam: Constitutional: in no acute distress, pleasant and normal affect. Vitals as above. HEENT: No scleral injection or discharge. Moist mucous membranes. Neck: Supple without lymphadenopathy or thyromegaly. Trachea midline. Lungs: CTAB. No rales/rhonchi/wheeze. Cardiac: RRR.No murmurs. Abdomen: Bowel sounds present. Soft. Mildly distended. Moderate midepigastric tenderness. Less RUQ tenderness, neg murphys sign. Otherwise no guarding or hepatosplenomegaly. MSK: No cyanosis or clubbing. No gross lesions of significance, she has no anterior abdominal wall trigger points, she does have mild right-sided lower paraspinal hypertonicity but none periscapular Skin: No rashes, warm, dry. No pallor. Neurologic: Grossly intact cranial nerves Psych: AOx3 Results & Data Results & Data ([facility]) Vital Signs (Past 12 Hours) Vital Signs Temp Pulse Resp BP Pulse Ox O2 Del Method 10/07/22 19:59 36.9 C 85 18 112/69 97 Room Air (1) Infiltrating ductal carcinoma of breast Laterality: unspecified laterality Qualified Code(s): C50.919 - Malignant neoplasm of unspecified site of unspecified female breast
[2022-10-08] MEDS: FAMOTIDINE 20 MG TAB PO SCH (07:30)
[2022-10-08] MEDS: PANTOprazole 40 MG TAB PO SCH (07:30)
[2022-10-08] MEDS: LACTULOSE SYRUP 20 GM/30 ML UDC PO SCH (07:31)
[2022-10-08] MEDS: ALUMINUM/MAGNESIUM/SIMETH (MAALOX MAX) 30 ML UDC PO SCH ×2 (07:33→12:04)
[2022-10-08 07:48] VITALS: TEMP 97.7
--- NOTE | 2022-10-08 09:49 | Gastrointestinal Consultation ---
Date of Consultation October 08, 2022 Assessment & Plan (1) Constipation: (2) Nausea & vomiting: Plan -Enema ordered to empty bowels. -Then begin daily bowel regimen with Miralax 17 gm BID for now. Nausea may improve with emptying her bowels so she should be able to consume 64 oz water daily at that time to maximize efficacy of Miralax. -If no improvement of nausea with emptying her bowels, would initiate Emend. -Liquid diet until feeling improved; when advancing, consider utilizing a modified gastroparesis diet of 4-6 small, frequent meals with low fat & low fiber content daily. -Can consider repeating gastric emptying study as an outpatient, though this does not acutely change the plan of care. -No indication for endoscopic evaluation at this time as she recently had an EGD/colonoscopy. -Continue Protonix 40 mg BID. -Can add Famotidine 20 mg BID as well. Supervising Physician Co-Signing Physician Notes Patient was discharged prior to my arrival Agree with MAEVE Weathers as above History of Present Illness Reason for Consultation: Nausea Attending Physician: Giovanny Chavez DO History of Present Illness Patient is a 42 yo female with history of GERD and Infiltrating ductal carcinoma of the left breast who is several months post last chemotherapy treatment. GI has been consulted for evaluation of her nausea. The patient notes she has had a long-term history of abdominal discomfort, nausea, & diarrhea. She notes "stomach problems" for many years. In 2016, she underwent a gastric emptying study that indicated very slight 1% delays in emptying at the 1 and 2 hour adelso, but normal by the 4 hr adelso. Earlier in the year she had been on chemotherapy and was experiencing nausea & abdominal discomfort. Her oncology team referred her for an EGD and colonoscopy in April 2022. EGD showed a small hiatal hernia and mild gastritis. Colonoscopy was unremarkable. She was on BID PPI therapy while on chemotherapy, then this was reduced after she completed chemotherapy. She notes she has been taking Colace for her constipation and reports she has been moving her bowels more than she has in years. She notes that acutely on 10/02 she developed severe nausea. She felt unable to eat a meal without vomiting. She presented to the ED at [facility]. While admitted, she has been given IV antiemetic therapy with minimal response per her reports. Labs are unremarkable from a GI standpoint. She had a CT scan of the abdomen/pelvis that was unremarkable with the exception of significant constipation. She notes she hasn't been able to tolerate enough fluids to take Miralax due to her nausea. She has no alarming symptoms of focal abdominal pain, hematemesis, melena, or hematochezia. Allergies Allergy/AdvReac Type Severity Reaction Status Date / Time No Known Allergies Allergy Verified 08/11/22 11:21 Home Medications Medication Instructions Recorded Confirmed Type dicyclomine 20 mg tablet 20 mg PO QID PRN Spasms 04/15/22 10/06/22 History norgestrel 0.3 mg-ethinyl 1 tab PO HS 10/06/22 10/06/22 History estradiol 30 mcg tablet (Dre (28)) aluminum-mag hydroxide-simethicone 30 ml PO QID #3,600 mL 10/08/22 Rx 400 mg-400 mg-40 mg/5 mL oral susp (Mag-Al Plus Extra Strength) famotidine 20 mg tablet 20 mg PO BID #60 tabs 10/08/22 Rx lactulose 20 gram/30 mL oral 40 g (60 mL) PO BID #600 mL 10/08/22 Rx solution ondansetron HCl 4 mg tablet 4 mg PO Q6H PRN nausea and 10/08/22 Rx vomiting #60 tabs pantoprazole 40 mg tablet,delayed 40 mg PO BID #60 tabs 10/08/22 Rx release promethazine 12.5 mg tablet 12.5 mg PO QID PRN nausea #60 tabs 10/08/22 Rx Patient History Medical History Gastroesophageal reflux disease Hx of female infertility IBS (irritable bowel syndrome) Infiltrating ductal carcinoma of breast Biopsy 06/19/14 - Invasive ductal carcinoma, Triple negative-LEFT SIDE Returned in 2020 Kidney stones passed on own PCOS (polycystic ovarian syndrome) Port-A-Cath in place Short gut syndrome Surgical History Delivery by section x1 History of endoscopy History of lumpectomy of left breast History of surgery Reconstruction of breast exchange for implants on 01/15/15 History of surgery 06/18/2015 Reconstruction of nipple and revision of reconstructed breast History of vascular access device LEFT UPPER CHEST-POWER PORT Hx of bilateral mastectomy Hx of breast reconstruction Hx of colonoscopy Hx of oral surgery S/P breast reconstruction, bilateral 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 Father Family history unknown Sister Seizures Daughter No problems noted. Denies family history of Ovarian cancer Colorectal cancer Social History Smoking Status: Never smoker Second Hand Exposure: No; Hx Alcohol Use: Yes Alcohol type: wine Hx Substance Use: No Preferred Language: Hungarian Communication Ability: Effective Visual Impairment: No Limitations Hearing Ability: Normal Warehouse Associate Required: No Beliefs That Will Affect Care: None marital status: Current Living Situation: Spouse Current Living Situation Comment: 9 stairs to enter dwelling current occupational status: employed current occupation: Works at [employer] How many Children do You have: 1 Feels Safe at Home: Yes caffeine: No during the past year weight has: remained stable Assistive Devices: None Review of Systems Constitutional: no fever and no chills Respiratory: no cough and no dyspnea Cardiovascular: no chest pain Gastrointestinal: + nausea; no abdominal pain and no dysphagia Musculoskeletal: no problem reported Integumentary: no problem reported Psychiatric: no problem reported Hematologic / Lymphatic: no easy bleeding Physical Exam Constitutional: well developed Respiratory: normal respiratory effort Cardiovascular: Rate/Rhythm: regular rate Gastrointestinal (Abdomen): Inspection/Auscultation: normal bowel sounds Percussion/Palpation: abdomen soft; abdomen nontender Musculoskeletal: Head/Neck/Chest: normocephalic Psychiatric: Orientation: alert and oriented x 3 Results & Data ([facility]) Vital Signs (Past 12 Hours) Vital Signs Temp Pulse Resp BP Pulse Ox O2 Del Method 10/08/22 07:46 36.5 C 75 17 126/63 97 Room Air PG Care Time/CCT Total # of Minutes Spent Total Time Spent with Patient: Total time spent is greater than 50% in coordination of care (as documented) at patient's floor/unit and/or counseling patient: Coding Level of Care Code 15699 Inpt Consult Level 4 Diagnoses Constipation K59.00 Nausea & vomiting R11.2
[2022-10-08] MEDS ORDERED: SOD PHOSPHATE/SOD BIPHOSPHATE ENEMA 132 ML BTL PR ONE (10:06)
[2022-10-08 12:53] VITALS: BP 135/78; PULSE 90
--- NOTE | 2022-10-08 13:23 | Discharge Summary ---
Date of Service October 08, 2022 Admission HPI Per Admitting Provider Intractable nausea started fairly abruptly on prior to that she was feeling pretty good. Chemotherapy finished about 2 months agoand while she was not back to feeling great, she had noted progressive improvements in how she was feeling and had been eating and drinking pretty normally. Notes that she does run chronically constipatedtaking 300 mg of Colace a day she will have a bowel movement every 2 to 3 days, about a week leading up to her current symptoms she had no bowel movements, although she did have 1 yesterday. No real painshe does note occasional fleeting abdominal pain and when it happens its more epigastric than anywhere but not really any significant pain. She has not really been able to eat or drink anything meaningful in the last week and is concerned about that/understandably concerned about going home before feeling better. No fevers chills or sweats. No other symptoms. Notes that she is cancer free to the best of her knowledge, but is taking caution given that she has had a recurrence before Principal Diagnosis Intractable nausea, constipation Discharge Exam Constitutional: in no acute distress, pleasant and normal affect. Vitals as above. HEENT: No scleral injection or discharge. Moist mucous membranes. Neck: Supple without lymphadenopathy or thyromegaly. Trachea midline. Lungs: CTAB. No rales/rhonchi/wheeze. Cardiac: RRR.No murmurs. Abdomen: Bowel sounds present. Soft. Mildly distended. Moderate midepigastric tenderness. Less RUQ tenderness, neg murphys sign. Otherwise no guarding or hepatosplenomegaly. MSK: No cyanosis or clubbing. No gross lesions of significance, she has no anterior abdominal wall trigger points, she does have mild right-sided lower paraspinal hypertonicity but none periscapular Skin: No rashes, warm, dry. No pallor. Neurologic: Grossly intact cranial nerves Psych: AOx3 Discharge Data Allergies Allergy/AdvReac Type Severity Reaction Status Date / Time No Known Allergies Allergy Verified 08/11/22 11:21 Consultations 10/07/22 17:38 Consult Gastroenterology Routine Ordered Studies Laboratory Results WBC 4.40 K/ul (4.8-10.8) L 10/07/22 07:28 RBC 3.89 M/uL (3.93-5.22) L 10/07/22 07:28 Hgb 12.1 g/dl (12.0-16.0) 10/07/22: Hct 35.6 % (34.1-44.9) 10/07/22: MCV 91.5 fL (80.0-100.0) 10/07/22: MCH 31.1 pg (25.0-34.0) 10/07/22: MCHC 34.0 g/dL (32.0-36.0) 10/07/22: RDW Std Deviation 40.5 fL (36.4-46.3) 10/07/22 RDW Coeff of Arelis 12.1 % (11.5-14.5) 10/07/22 Plt Count 244 K/uL (130-400) 10/07/22: MPV 10.0 fL (9.4-12.3) 10/07/22: Immature Gran % (Auto) 0.2 % 10/07/22: Neut % (Auto) 61.2 % 10/07/22: Lymph % (Auto) 23.2 % 10/07/22: Campbell % (Auto) 11.1 % 10/07/22: Eos % (Auto) 3.6 % 10/07/22: Baso % (Auto) 0.7 % 10/07/22 Neut # (Auto) 2.69 K/uL (1.4-6.5) 10/07/22: Lymph # (Auto) 1.02 K/uL (1.2-3.4) L 10/07/22: Campbell # (Auto) 0.49 K/uL (0.24-0.82) 10/07/22: Eos # (Auto) 0.16 K/uL (0-0.50) 10/07/22: Baso # (Auto) 0.03 K/uL (0-0.2) 10/07/22: Immature Gran # (Auto) 0.01 K/uL (0.00-0.02) 10/07/22: Sodium 138 mmol/L (136-145) 11/22/22 07:28 Potassium 3.6 mmol/L (3.5-5.1) 10/07/22 07:28 Chloride 105 mmol/L (98-107) 10/07/22 07:28 Carbon Dioxide 25 mmol/L (21-32) 10/07/22 07:28 Anion Gap 8 (3-11) 10/07/22 07:28 BUN 7 mg/dl (6-23) 10/07/22 07:28 Creatinine 0.69 mg/dl (0.6-1.2) 10/07/22 07:28 Est Cr Clr Drug Dosing 109.0 ml/min 10/07/22 07:28 Est GFR ( Amer) 122.7 ml/min 10/07/22 07:28 Est GFR (Non-Af Amer) 105.9 ml/min 10/07/22 07:28 BUN/Creatinine Ratio 10.1 (10-20) 10/07/22 07:28 Glucose 70 mg/dl (70-99(Fasting)) 10/07/22 07:28 Lactate 0.3 mmol/L (0.4-2.0) L 10/06/22 Unknown Calcium 8.6 mg/dl (8.5-10.1) 10/07/22 07:28 Magnesium 1.9 mg/dl (1.7-2.4) 10/06/22 Unknown Total Bilirubin 0.6 mg/dl (0.2-1.0) 10/07/22 07:28 AST 11 U/L (13-39) L 10/07/22 07:28 ALT 10 U/L (7-52) 10/07/22 07:28 Alkaline Phosphatase 65 U/L (34-104) 10/07/22 07:28 Total Protein 6.5 gm/dl (6.0-8.3) 10/07/22 07:28 Albumin 3.7 gm/dl (3.4-5.0) 10/07/22 07:28 Globulin 2.8 gm/dl (2.5-4.0) 10/07/22 07:28 Albumin/Globulin Ratio 1.3 (0.9-2) 10/07/22 07:28 Lipase 23 U/L (11-82) 10/06/22 Unknown Urine Color Yellow 10/06/22 12:55 Urine Appearance Cloudy (Clear) A 10/06/22 12:55 Urine pH 5.5 (4.5-7.5) 10/06/22 12:55 Ur Specific [place] 1.021 (1.000-1.030) 10/06/22 12:55 Urine Protein 1+ (Negative) H 10/06/22 12:55 Urine Glucose (UA) Negative (Negative) 10/06/22 12:55 Urine Ketones 2+ (Negative) H 10/06/22 12:55 Urine Blood 3+ (Negative) H 10/06/22 12:55 Urine Nitrite Negative (Negative) 10/06/22 12:55 Urine Bilirubin Negative (Negative) 10/06/22 12:55 Urine Urobilinogen Negative (Negative) 10/06/22 12:55 Ur Leukocyte Esterase Trace (Negative) H 10/06/22 12:55 Urine WBC (Auto) 1-5 /hpf (0-5) 10/06/22 12:55 Urine RBC (Auto) >30 /hpf (0-4) H 10/06/22 12:55 U Hyaline Cast (Auto) 1-5 /lpf (0-5) 10/06/22 12:55 U Epithel Cells (Auto) >30 /lpf (0-5) H 10/06/22 12:55 Urine Bacteria (Auto) 1+ (Negative) H 10/06/22 12:55 SARS-CoV-2 (PCR) NEGATIVE (Negative) 10/06/22 15:35 Impressions KUB X-Ray 10/06/22 15:32 KUB HISTORY: Acute nausea and vomiting with generalized abdominal pain nausea COMPARISON: CT abdomen and pelvis 04/15/2022. FINDINGS: Nonobstructive bowel gas pattern. Partially imaged catheter projects over the right heart border. The heart appears enlarged. Surgical clips of the left breast. No renal calculi. No ureteral calculi. No pneumoperitoneum or pneumatosis. No fracture. IMPRESSION: Nonobstructive bowel gas pattern. ACT 112: Negative or not required by law. The above report was generated using voice recognition software. It may contain grammatical, syntax or spelling errors. Electronically signed by: Guaanko Arzola M.D. 10/06/2022 5:06 PM Liver Ultrasound 10/06/22 18:31 US liver HISTORY: 42 years-old Female RUQ pain, (+) murphys acute right upper quadrant abdominal pain COMPARISON: CT 04/15/2022 TECHNIQUE: Multiple real-time sonographic images of the abdominal right upper quadrant were obtained assessing grayscale appearance and color flow FINDINGS: The visualized pancreas is unremarkable. The liver measures up to 19.1 cm in length. No hepatic mass identified. Unremarkable gallbladder. No cholelithiasis or gallbladder wall thickening identified. Mild gallbladder distention. Normal common bile duct, 5 mm. Negative sonographic Velasco's sign. The imaged right kidney is unremarkable without hydronephrosis. IMPRESSION: Unremarkable exam. ACT 112: Negative or not required by law. The above report was generated using voice recognition software. It may contain grammatical, syntax or spelling errors. Electronically signed by: Guanako Arzola M.D. 10/06/2022 7:57 PM Hospital Course (1) Nausea: Nausea Differential fairly broad, but it seems like most likely constipation versus gallbladder disease versus less likely but possible GI mucosal such as peptic ulcer disease. With normal transaminases, and with her time course of feeling better since chemotherapy until a few days ago, I doubt any type of a late effect of chemotherapy, but certainly will continue to follow closely in that regard. -RUQ ultrasound unremarkable. LFTs wnl. -KUB: nonobstructive bowel gas pattern -EGD a few months ago normal per patient. Recent chest and abd/pelvis CT showed no concern for malignancy and were generally unremarkable. -Bowel regimen + enema given in hospital -Will cont. acid suppression with pantoprazole 40mg bid, famotidine 20mg bid -Anti nausea with Zofran and Phenergan -Bowel regimen with lactulose 40mg bid x5 days and Maalox 30mL tid-qid. She cannot tolerate miralax or psyllium. -diet as tolerated -GI consulted -agree with above -consider utilizing a modified gastroparesis diet of 4-6 small, frequent meals with low fat & low fiber content daily -Can consider repeating gastric emptying study as an outpatient, though this does not acutely change the plan of care -f/u PCP and GI in the upcoming weeks for further evaluation. Infiltrating ductal carcinoma of breast: Appears to be in remission Gastroesophageal reflux disease: Cont. escalated acid suppression for now (2) Infiltrating ductal carcinoma of breast: (3) Gastroesophageal reflux disease: (4) Constipation: Total Time Total Time Spent Total Time Spent (In Minutes): <30 Discharge Plan Discharge Items Patient Disposition: Home - Self-Care Reason For Visit: INTRACTABLE NAUSEA Discharge Diagnosis: Intractable nausea, constipation Activity: Per Instructions section Non-emergency contact: Primary Care Provider Call non-emergency contact if: you have any medication questions and your symptoms worsen Follow-up/Referrals: Ye Starkey DO [Physician] - 10/22/22 11:20 am (APPOINTMENT WITH [facility]) Nancie Bronw [Primary Care Provider] - 10/17/22 11:05 am ( ) Diet: Regular Addtl Attending Provider Instructions: You are admitted to the hospital for severe nausea. Given that you have had a recent CT scans and an EGD we did not see this necessary to repeat at this time. I do believe a lot of your symptoms are due to constipation which you experience chronically. In the hospital we treated you with antinausea medications as well as laxatives to help move the bowels. We also had you seen by our GI specialist who gave their recommendations as well. Below I will write out what you should do going forward. Nauseawe will treat your nausea with medications on an as-needed basis going forward. I have sent prescriptions for Zofran and Phenergan to your pharmacy. I believe you would mention you also have Compazine at home. Be cautious when using Phenergan and Compazine together however combinations of the others can be used fairly safely. Refluxyou are already on daily Protonix at home. Going forward you should use the Protonix 40 mg twice a day. You should also use famotidine (Pepcid) 20 mg twice a day. Constipationyou were given a enema in the hospital today. Going forward I would like you to use MiraLAX or Mylanta 3-4 times a day which has been prescribed to pharmacy. For the next 5 days you should also use lactulose twice a day. You may advance diet as tolerated, and may be beneficial to start with a clear liquid diet and progress to a regular diet as her body is able. In the next 2 to 3 weeks you should follow-up with your GI specialist as well as PCP for further management. Pending Studies at Discharge: No Stand-Alone Forms: [facility] Medications and DC Order Prescriptions: New famotidine 20 mg Tablet 20 mg PO BID Qty: 60 0RF alum-mag hydroxide-simeth [Mag-Al Plus Extra Strength] 400-400-40 mg/5 mL Susp ension 30 ml PO QID Qty: 3600 0RF pantoprazole 40 mg Tablet,Delayed Release (Dr/Ec) 40 mg PO BID Qty: 60 0RF ondansetron HCl 4 mg tablet 4 mg PO Q6H PRN (Reason: nausea and vomiting) Qty: 60 0RF promethazine 12.5 mg tablet 12.5 mg PO QID PRN (Reason: nausea) Qty: 60 0RF lactulose 20 gram/30 mL solution 40 g PO BID Qty: 600 0RF Continued Cryselle (28) 0.3-30 mg-mcg tablet 1 tab PO HS dicyclomine 20 mg tablet 20 mg PO QID PRN (Reason: Spasms) Discontinued Metamucil Fiber Thin 2 gram wafer 2 wafer PO DAILY PRN (Reason: Constipation) pantoprazole 40 mg tablet,delayed release (DR/EC) 40 mg PO DAILY Discharge Orders: Discharge Order (Routine); Ordered 10/08/22 Ordered By: Keith Driver Admission Data Admit Date/Time: 10/06/22 18:41 Attending Provider: Giovanny Chavez Admit Provider: Giovanny Chavez Primary Care Provider: Nancie Brown Other Providers: Ye Starkey Other Interventions: Discharge Summary Assessment (RN) Last Done: 10/08/22 12:51 Supervising Physician Co-Signing Physician Notes I personally examined the patient and verified all matos points of history and exam, discussed case, and agree with decision making with Dr Driver Still just liquid bowel movements. Nausea marginally betterbut definitely wants to go home. Notes that she feels like she will do okay at home. Revisited working diagnosis in depth. Appreciate GI input. Vitals noted, in general she is awake and alert pleasant no distress. HEENT normocephalic atraumatic mucous membranes moist. Breathing unlabored no accessory muscle use good effort. Skin shows no rashes no pallor or icterus. Intractable nauseapatient notes she is going home. Discussed antiemetic management with Zofran and Phenergan at home, discussed ongoing bowel regimenshe notes that she does not tolerate the volume associated with taking MiraLAXtherefore we will use lactulose twice daily for the next 5 days, and Mylanta 3 times daily to 4 times daily scheduled indefinitely to keep her bowels moving. Discussed that given that her nausea is not much better I definitely want to view this as a "work in progress"since she is better hydrated and is safe to go home it is okay to go home even with her diagnosis not yet better, but will want her to have PCP and GI follow-up to ensure that as her bowels are moving she starts to feel better, and also to ensure that this regimen truly does get her bowels moving. For home otherwise as above Resident Activity Tracking Resident Involvement: Resident Care Provided Care Provided: Adult Hospital Medicine
--- NOTE | 2022-10-08 19:07 | Billing Data ---
Date of Service October 08, 2022 Coding Level of Care Code D/C DAY MANAGEMENT <30 MINS
[2022-10-08] MEDS ORDERED: FAMOTIDINE 20 MG TAB PO SCH (21:00)
[2022-10-09] MEDS ORDERED: POLYETHYLENE (MIRALAX) 17 GM PACK PO SCH (09:00)
== END 2022-10-08 13:24 | disposition home or self-care (01) | DRG 392 ==
LOC: ED 10:45 → 3N 18:41